=== PATIENT | male | born 1950 | race Caucasian/White ===

== ENCOUNTER 2019-01-09 18:40 | Inpatient (IN) | payer MEDICARE, OTHER ==
--- OUTSIDE RECORDS SUMMARY | 2019-01-09 19:00 | XMS REPORT | Continuity of Care Document ---
:1950 External Reference #:[id number] Author Name Edwin Voss M.D. Address [address] [facility] [address] [place] [address] Care Team Providers Name Role Phone HCP given Primary Care Physician Unavailable Payers Date Identification Numbers Payment Provider Subscriber Effective: Policy Number: [id number] [facility] Tomasz Emanuel 2016 Services PayID: [id number] [address] [place] [address] Effective: 2017 Policy Number: [id number] [facility] Tomasz Emanuel PayID: [id number] [address] [place] [address] Problems Active Problems Provider Date Benign essential hypertension Edwin Voss M.D. Onset: 03/13/2010 Hypothyroidism Edwin Voss M.D. Onset: 03/13/2010 Pure hypercholesterolemia Edwin Voss M.D. Onset: 03/13/2010 Impaired fasting glycaemia Edwin Voss M.D. Onset: 01/20/2011 Obstructive sleep apnea syndrome Edwin Voss M.D. Onset: 02/24/2011 Type 2 diabetes mellitus Edwin Voss M.D. Onset: 05/08/2014 Essential hypertension Edwin Voss M.D. 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 Tobacco Use Start: Unknown End: Former Cigarette Smoker quit 1992; prior to Unknown that smoked 1-2ppd Smoking Status Reviewed: 11/27/18 Former Cigarette Smoker quit 1992; prior to that smoked 1-2ppd Smokeless Tobacco Current Smokeless 1 can q2wks Tobacco User ETOH Use Rarely consumes alcohol Exercise Type/Frequency Exercises regularly walks, hikes Age 1st [place] 19 Years Old # [employer] [facility] [employer] 1-5 Lifetime Allergies, Adverse Reactions, Alerts Active Allergies Reaction Severity Comments Date Zocor muscle pain 09/09/2009 Medications Active Medications SIG Qnty Indications Ordering Date Provider Meclizine HCL take 1 tablet by 30tabs H81.10 Silcoff, 25mg Tablets mouth every 6 hours Akin Pineda 9 as needed for vertigo Hydrochlorothiazide take 1 tablet every 90tabs I10 Silcoff, 25mg morning for high Akin Pineda 8 Tablets blood pressure Azelastine HCL instill one drop 18ml H10.13 Silcoff, (Ophthalmic) into affected eye Akin Pineda 8 0.05% Solution two times a day as needed, space doses at least 6 hours apart Synthroid take 1 tablet every 100tabs E03.8 Silcoff, 200mcg Tablets morning at least 30 Akin Pineda 8 minutes before breakfast for thyroid (blood test due winter 2018-2020) Metformin HCL ER Take 3 Tablets 270tabs E11.9 Silcoff, 500mg Daily With Supper Akin Pineda 6 Tablets ER 24HR For Blood Sugar Control Cpap (Set To 10CM H2o) with heated G47.33 Silcoff, humidification Akin Pineda 5 Losartan Potassium Take 1 Tablet Daily 90tabs I10 Silcoff, 100mg For High Blood Akin Pineda 5 Tablets Pressure Fluticasone Propionate Use 2 Sprays In 48units J30.9 Silcoff, Each Nostril Once Akin Pineda 2 50mcg/Act Suspension Daily For Allergies Mask, Tubing And Filters G47.33 Silcoelayne, For Cpap Akin Pineda 1 Elastic Compression use as directed 454.9 Silco, Stockings; Above Knee; Akin Pineda 1 20-30MMHG Zyrtec Allergy 1 po qd 477.9 Unknown 10mg Tablets 0 Amlodipine Besylate Take 1 Tablet Daily 90tabs I10 Silcoff, 10mg For High Blood Akin Pineda 0 Tablets Pressure Atenolol Take 1 Tablet By 90tabs I10 Silkacy, 50mg Tablets Mouth Every Day For Akin Pineda 0 High Blood Pressure Ibuprofen Take 1 Tablet Three 270tabs M25.50 Silcoelayne, 800mg Tablets Times A Day as Akin Pineda 0 Needed For Arthritis M15.0 History Medications Amoxicillin/Clavulanate 1 by mouth twice a 20tabs J32.9 Sopaniya, 2018 - Potassium day Constantino Cardona 12/07/2018 875-125mg Tablets Oxybutynin Chloride ER take one tablet by 30tabs N32.81 Shanika, 2018 - 5mg Tablets mouth every Edwin, 08/27/2018 ER 24HR evening for M.D. overactive bladder Sulfamethoxazole/Trimethopr 1 by mouth twice a 14tabs N39.0 Silcoelayne, 03/07 - im DS day for 1 week for Edwin, 03/07/2018 800-160mg Tablets a UTI M.D. Shingrix administer 2 doses 2units Z23 Silcoff, 03/07/2018 - 50mcg Suspension Rec as directed, per Edwin, 09/03/2018 cdc guidelines MPam Synthroid 1 tab by mouth 90tabs E03.8 Silcoff, 03/15/2017 - 175mcg Tablets every morning (at Edwin, 09/26/2017 least 30 minutes M.D. before breakfast) for thyroid; blood test due late may 2018 Synthroid Take 1 Tablet 90tabs E03.8 Silcoff, 09/21/2016 - 112mcg Tablets Every Morning On [place], 03/15/2017 An Empty Stomach M.D. For Thyroid Tramadol HCL 1-2 by mouth every 60tabs M54.6 [facility], 08/09/2016 - 50mg Tablets 6 hours as needed Brendan D.OAntonio 09/08/2016 for pain Metformin HCL ER 2 by mouth every 180tabs E11.9 Silco, 09/26/2015 - 500mg Tablets ER evening; for blood [place], 12/26/2015 24HR sugar control M.D. Doxazosin Mesylate take 1/2 tablet by 90tabs I10 [facility]27[place]2015 - 2mg Tablets mouth at bedtime [place], 09/05/2015 for 1 week then M.D. increase to 1 tablet at bedtime if tolerating it well Synthroid Take 2 Tablets 180tabs E03.8 [facility] 06/[facility] - 125mcg Tablets Every Morning On [place], 09/21/2016 An Empty Stomach M.D. For Thyroid Crestor take 1 tablet 42samples 272.0 [facility] 07/08/2014 - 5mg Tablets daily for high [place], 09/19/2014 cholesterol M.D. Pravastatin Sodium take one tablet by 90tabs 272.0 [facility]/08[place]2014 - 40mg Tablets mouth every [place], 05/22/2014 evening for high M.D. cholesterol Losartan Potassium take 1 tablet 90tabs 401.1 Silco, 05/08/2014 - 50mg Tablets daily in the [place], 07/08/2014 morning for high M.D. blood pressure Crestor take one tablet by 90tabs 272.0 Silco, 01/30/2014 - 10mg Tablets mouth every day [place], 04/23/2014 for high M.D. cholesterol Augmentin 1 cap by mouth 20tabs 461.0 [facility], 08/30/2013 - 875-125mg Tablets twice a day Brendan, D.O. 01/29/2014 Bromelain 1200 Gdu 1 cap by mouth 90units 461.0 [facility], 08/30/2013 - 1200Gdu Powder three times a day Brendan, D.O. 01/29/2014 Pataday instill 1 drop 2.500ml H10.13 [facility] 08/[place]2013 - 0.2% Solution into affected eye Edwin, 10/09/2017 daily for allergic M.DAntonio conjunctivitis Clobetasol Propionate apply to the 2 30gm 709.9 Silkacy, 05/28/2013 - 0.05% affected on calf Edwin, 09/19/2014 Ointment 2x/day as needed Akin 782.1 696.1 Amoxicillin 2 by mouth three 60tabs 461.9 Silcoelayne, 05/14/2013 - 500mg times a day for 10 Akin Pineda 05/24/2013 Tablets days for sinusitis Hydrocortisone apply to affected 15gm 709.9 Silcoelayne, 04/04/2013 - Valerate area on back of R Akin Pineda 04/25/2013 0.2% Ointment leg (near ankle) 2-3x/day for 2-3 weeks Atorvastatin Calcium Take 1 Tablet By 90tabs 272.0 Silkacy, 03/14/2013 - Mouth Every Day To Akin Pineda 04/04/2013 10mg Tablets Reduce Cholesterol Synthroid 2 By Mouth Every 180tabs E03.8 Silcoff, 01/02/2013 - 112mcg Morning On An Akin Pineda 06/27/2015 Tablets Empty Stomach; overdue for bloodwork!! Tramadol HCL 1-2 by mouth every 60tabs 715.09 Silcoelayne, 01/02/2013 - 50mg night as needed Akin Pineda 01/29/2014 Tablets for joint pains 719.49 Amoxicillin/Clavulanate 1 by mouth 20tabs 461.0 Silcoelayne, 09/19/2012 - Potassium twice a day for Akin Pineda 09/29/2012 875-125mg Tablets sinus infection Azithromycin 2 by mouth on 6tabs 466.0 Silcoelayne, 08/14/2012 - 250mg Tablets day then 1 by Akin Pineda 08/19/2012 mouth daily for 4 more days Foradil Aerolizer inhale the 18samples 466.0 Silcoff, 08/14/2012 - 12mcg Capsules contents of 1 Akin Pineda 08/23/2012 capsule every 12hrs Synthroid take 1 tablet 120tabs 244.8 Silcoff, 07/07/2012 - 150mcg Tablets by mouth 5x/wk, Akin Pineda 01/02/2013 2 tabs 2x/wk; take in the morning on an empty stomach Amoxicillin/Clavulanate 1 tab po bid x 20tabs 461.2 Nhungcoelayne, 05/12/2012 - Potassium 10 Akin Pindea 06/21/2012 875-125mg Tablets Augmentin 1 tab po bid x 20tabs 461.2 Shanika, 05/15/2010 - 875-125mg Tablets 10 d Akin Pineda 05/25/2010 Lipitor Take 1 Tablet 90tabs 272.0 Nhungcoelayne, 03/13/2010 - 10mg Tablets By Mouth Every Akin Pineda 03/14/2013 Day To Reduce Cholesterol Synthroid Take 1 Tablet 104tabs 244.8 Nhungcoelayne, 09/22/2009 - 150mcg Tablets By Mouth Every Akin Pineda 07/07/2012 Day In The Morning On An Empty Stomach Tuesday Through Tuesday And 2 Tablets On Tuesday Synthroid 1 po qd 90tabs 244.8 [place]ne, 09/08/2009 - 150mcg Tablets Akin Pineda 09/22/2009 Flonase 2 sprays to 48gm 477.9 [place]el[place]ne, 09/08/2009 - 50mcg/Act Suspension both nostrils Akin Pineda 05/18/2012 once daily for allergies Clarinex 1 tablet po qd 90tabs 477.9 Shanika, 09/08/2009 - 5mg Tablets prn for Akin Pineda 09/11/2009 allergies Hydrochlorothiazide Take 1 Tablet 90tabs I10 Shanika, 09/08/2009 - 25mg Tablets Every Morning Akin Pineda 09/21/2017 For High Blood Pressure Medications Administered in Office Medication SIG Qnty Indications Ordering Provider Date H1N1 Swine Flu Vaccine Edwin Voss M.D. 09/09/2009 Injection Immunizations CPT Code Status Date Vaccine Lot # [id number] Given 09/04/2018 Pneumococcal Immunization [id number] 80027 Given 03/07/2018 Influenza Vaccine, Inactivated, Subunit, [id number] [place]ed[place] [facility] [address] Given 03/23/2017 Prevnar 13 [id number] 66775 Given 02/25/2017 Influenza Vaccine Split Virus Preservative Free Im [id number] Use 97232 Given 02/19/2016 Influenza Virus Vaccine, Quadrivalent, Split, [id number] Preservative Free 72753 Given 03/20/2015 Influenza Virus Vaccine, Quadrivalent, Split, [id number] Preservative Free 67451 Given 04/12/2014 Flu, Split Virus 3Yrs [id number] 03646 Given 04/04/2013 Flu, Split Virus 3Yrs [id number] 56698 Given 01/02/2013 Zostavax [id number] 58591 Given 02/22/2012 Flu, Split Virus 3Yrs [id number] 72335 Given 02/24/2011 Flu, Split Virus 3Yrs [id number] 85906 Given 09/21/2010 Pneumococcal Immunization [id number] 33695 Given 09/21/2010 Adacel or Boostrix, TDaP [id number] 20574 Given 04/08/2010 Flu, Split Virus 3Yrs [id number] Vital Signs Date Vital Result Comment 12/18/2018 11:27am BP Systolic 120 mmHg BP Diastolic 66 mmHg Weight 262.00 lb 11/27/2018 1:36pm BP Systolic 122 mmHg BP Diastolic 70 mmHg Height 71.5 inches 5'11.50" Weight 262.00 lb BMI (Body Mass Index) 36.0 kg/m2 09/29/2018 4:30pm BP Systolic 130 mmHg per pt at home BP Diastolic 75 mmHg per pt at home 09/04/2018 8:39am BP Systolic 122 mmHg BP Diastolic 78 mmHg Weight 269.00 lb w/shoes 03/07/2018 10:01am BP Systolic 128 mmHg BP Diastolic 76 mmHg Body Temperature 97.7 F Height 71.50 inches 5'11.50" Weight 266.00 lb BMI (Body Mass Index) 36.6 kg/m2 09/21/2017 1:52pm BP Systolic 138 mmHg BP Diastolic 74 mmHg BP Systolic Recheck 138 mmHg R arm sitting BP Diastolic Recheck 70 mmHg R arm sitting Weight 265.00 lb 06/04/2017 9:34am BP Systolic 128 mmHg BP Diastolic 84 mmHg Body Temperature 98.0 F Weight 267.00 lb 03/23/2017 2:51pm BP Systolic 118 mmHg BP Diastolic 64 mmHg BP Systolic Recheck 136 mmHg R arm sitting; recheck 132/74 BP Diastolic Recheck 68 mmHg R arm sitting; recheck 132/74 Weight 262.00 lb 09/21/2016 2:07pm BP Systolic 125 mmHg per nurse BP Diastolic 80 mmHg per nurse BP Systolic Recheck 132 mmHg R arm sitting BP Diastolic Recheck 74 mmHg R arm sitting Weight 257.00 lb with shoes 08/09/2016 1:02pm BP Systolic 130 mmHg standing BP Diastolic 78 mmHg standing Height 71.50 inches 5'11.50" with boots Weight 257.00 lb with boots BMI (Body Mass Index) 35.3 kg/m2 03/29/2016 1:20pm BP Systolic 124 mmHg BP Diastolic 80 mmHg BP Systolic Recheck 122 mmHg R arm sitting BP Diastolic Recheck 68 mmHg R arm sitting Weight 272.00 lb 12/26/2015 3:45pm BP Systolic 126 mmHg BP Diastolic 70 mmHg Height 71.50 inches 5'11.50" Weight 285.00 lb BMI (Body Mass Index) 39.2 kg/m2 09/26/2015 4:46pm BP Systolic 130 mmHg BP Diastolic 80 mmHg Weight 287.00 lb with shoes 06/27/2015 8:49am BP Systolic 142 mmHg BP Diastolic 72 mmHg BP Systolic Recheck 144 mmHg R arm sitting BP Diastolic Recheck 84 mmHg R arm sitting Height 71.50 inches 5'11.50" Weight 286.00 lb BMI (Body Mass Index) 39.3 kg/m2 12/20/2014 5:51pm BP Systolic 160 mmHg R arm w/ his cuff BP Diastolic 90 mmHg R arm w/ his cuff BP Systolic Recheck 155 mmHg R arm w/ our cuff BP Diastolic Recheck 74 mmHg R arm w/ our cuff 12/20/2014 4:25pm BP Systolic 158 mmHg 149/86 w/ Home BP cuff BP Diastolic 78 mmHg 149/86 w/ Home BP cuff Height 70.75 inches 5'10.75" Weight 283.00 lb BMI (Body Mass Index) 39.7 kg/m2 09/20/2014 4:39pm BP Systolic 150 mmHg BP Diastolic 80 mmHg BP Systolic Recheck 150 mmHg BP Diastolic Recheck 72 mmHg Weight 286.00 lb shoes on 07/08/2014 4:13pm BP Systolic 140 mmHg BP Diastolic 78 mmHg BP Systolic Recheck 146 mmHg R arm sitting BP Diastolic Recheck 82 mmHg R arm sitting Height 70.25 inches 5'10.25" Weight 280.00 lb BMI (Body Mass Index) 39.9 kg/m2 05/08/2014 3:07pm BP Systolic 128 mmHg BP Diastolic 80 mmHg BP Systolic Recheck 146 mmHg R arm sitting BP Diastolic Recheck 80 mmHg R arm sitting Weight 286.00 lb 01/30/2014 4:27pm BP Systolic 148 mmHg BP Diastolic 84 mmHg BP Systolic Recheck 144 mmHg R arm sitting BP Diastolic Recheck 86 mmHg R arm sitting Weight 293.00 lb shoes on 08/30/2013 4:52pm BP Systolic 152 mmHg BP Diastolic 76 mmHg Body Temperature 98.2 F Height 71.5 inches 5'11.50" shoes on Weight 292.00 lb shoes on BMI (Body Mass Index) 40.2 kg/m2 05/14/2013 2:05pm BP Systolic 136 mmHg BP Diastolic 80 mmHg Body Temperature 97.9 F Weight 287.00 lb 04/04/2013 3:00pm BP Systolic 140 mmHg BP Diastolic 84 mmHg BP Systolic Recheck 146 mmHg R arm sitting BP Diastolic Recheck 82 mmHg R arm sitting Height 70.75 inches 5'10.75" Weight 289.00 lb BMI (Body Mass Index) 40.6 kg/m2 01/02/2013 3:22pm BP Systolic 108 mmHg BP Diastolic 76 mmHg BP Systolic Recheck 128 mmHg R arm sitting BP Diastolic Recheck 76 mmHg R arm sitting Heart Rate 64 /min reg Weight 281.00 lb 09/19/2012 4:34pm BP Systolic 108 mmHg BP Diastolic 74 mmHg Body Temperature 98.4 F Weight 287.00 lb 08/14/2012 11:39am BP Systolic 128 mmHg BP Diastolic 86 mmHg Weight 283.00 lb 07/07/2012 9:10am BP Systolic 118 mmHg BP Diastolic 78 mmHg Height 71 inches 5'11" Weight 284.00 lb BMI (Body Mass Index) 39.6 kg/m2 Last Menstrual Period 0 05/12/2012 1:47pm BP Systolic 128 mmHg BP Diastolic 82 mmHg Body Temperature 98.4 F Weight 284.00 lb Last Menstrual Period 0 01/03/2012 9:31am BP Systolic 116 mmHg BP Diastolic 68 mmHg Height 71 inches 5'11" Weight 280.00 lb BMI (Body Mass Index) 39.0 kg/m2 Last Menstrual Period 0 07/05/2011 10:08am BP Systolic 110 mmHg BP Diastolic 70 mmHg Heart Rate 58 /min reg Respiratory Rate 12 /min not laboured Weight 273.00 lb 02/24/2011 11:33am BP Systolic 110 mmHg BP Diastolic 70 mmHg Weight 267.00 lb 01/20/2011 9:03am BP Systolic 114 mmHg BP Diastolic 80 mmHg Weight 263.00 lb 12/11/2010 4:25pm BP Systolic 124 mmHg BP Diastolic 68 mmHg Body Temperature 98.2 F Weight 258.00 lb 12/08/2010 12:06pm BP Systolic 106 mmHg BP Diastolic 72 mmHg Body Temperature 98.4 F Weight 261.00 lb BMI (Body Mass Index) 18.9 kg/m2 10/07/2010 3:12pm BP Systolic 118 mmHg BP Diastolic 80 mmHg Height 71 inches 5'11" Weight 264.00 lb BMI (Body Mass Index) 36.8 kg/m2 09/21/2010 9:25am BP Systolic 110 mmHg BP Diastolic 68 mmHg Weight 262.00 lb Last Menstrual Period 0 05/15/2010 3:13pm BP Systolic 135 mmHg BP Diastolic 75 mmHg Heart Rate 67 /min Body Temperature 97.9 F Weight 263.00 lb Last Menstrual Period 0 03/13/2010 2:38pm BP Systolic 130 mmHg BP Diastolic 80 mmHg Height 70.5 inches 5'10.50" Weight 258.00 lb BMI (Body Mass Index) 36.5 kg/m2 09/09/2009 1:48pm BP Systolic 118 mmHg BP Diastolic 78 mmHg Height 71 inches 5'11" Weight 267.00 lb BMI (Body Mass Index) 37.2 kg/m2 Results Test Date Facility Test Result H/L Range Note Laboratory test 09/04/2018 In House Hemoglobin A1c 6.4 finding Laboratory test 09/04/2018 [facility] TSH (Thyroid 3.21 N 0.34-5.60 finding [phone] Stim Horm) mcIU/mL Basic Metabolic 09/04/2018 [facility] Sodium 139 mmol/L N 135-145 Panel [phone] Potassium 4.5 mmol/L N 3.5-5.0 Chloride 102 mmol/L N 101-111 Co2 Carbon Dioxide 30 mmol/L N 22-32 Anion Gap 7 mmol/L N 2-11 Glucose 129 mg/dL High 70-100 Blood Urea Nitrogen 17 mg/dL N 6-24 Creatinine 0.93 mg/dL N 0.67-1.17 BUN/Creatinine Ratio 18.3 N 8-20 Calcium 10.1 mg/dL N 8.6-10.3 Egfr Non- 81.3 >60 Egfr 98.4 >60 1 Urine Microalbumin 09/04/2018 [facility] Ur Microalbumin < 15.0 mg/L Random [phone] (mg/L) Urine Creatinine 42.31 mg/dL Urine Microalbumin/Creatinine TNP <31 2 Urine Micro Inhouse 03/21/2018 In House Ua WBC 0-2 3 Ua RBC - Ua Casts - Ua Epi 0-3 Ua Other - Ua Glucose - Ua Bilirubin - Ua Ketones - Ua Specific [place] 1.005 Ua Blood - Ua PH 6.5 Ua Protein - Ua Urobilinogen - Ua Nitrite - Ua Leukocytes tr Laboratory test finding 03/07/2018 In House Hemoglobin A1c 6.2 Urine Micro Inhouse 03/07/2018 In House Ua WBC 10-20 Ua RBC 3-6 Ua Casts - Ua Epi - Ua Other few bacteria Ua Glucose - Ua Bilirubin - Ua Ketones - Ua Specific [place] 1.005 Ua Blood 2+ Ua PH 6.0 Ua Protein - Ua Urobilinogen - Ua Nitrite - Ua Leukocytes 3+ Culture Urine 03/07/2018 In House Colonies confluent Inhouse growth Laboratory test 12/26/2017 [facility] TSH (Thyroid Stim 3.29 mcIU/mL N 0.34- finding [phone] Horm) 5.60 Laboratory test 09/21/2017 In House Hemoglobin A1c 6.0 finding Laboratory test 09/21/2017 [facility] TSH (Thyroid Stim 11.00 mcIU/mL High 0.34- finding [phone] Horm) 5.60 Urine Microalbumin 09/21/2017 [facility] Ur Microalbumin < 15.0 mg/L Random [phone] (mg/L) Urine Creatinine 55.09 mg/dL Urine Microalbumin/Creatinine TNP ug/mg <31 4 Basic Metabolic Panel 09/21/2017 [facility] Sodium 139 mmol/L N 139- 145 [phone] Potassium 4.7 mmol/L N 3.5-5.0 Chloride 101 mmol/L N 101-111 Co2 Carbon Dioxide 31 mmol/L N 22-32 Anion Gap 7 mmol/L N 2-11 Glucose 96 mg/dL N 70-100 Blood Urea Nitrogen 18 mg/dL N 6-24 Creatinine 0.93 mg/dL N 0.67-1.17 BUN/Creatinine Ratio 19.4 N 8-20 Calcium 10.1 mg/dL N 8.6-10.3 Egfr Non- 81.5 >60 Egfr 104.9 >60 5 Urine Micro Inhouse 09/21/2017 In House Ua WBC - Ua RBC - Ua Casts - Ua Epi - Ua Other - Ua Glucose - Ua Bilirubin - Ua Ketones - Ua Specific [place] 1.015 Ua Blood - Ua PH 6.0 Ua Protein - Ua Urobilinogen - Ua Nitrite - Ua Leukocytes - Laboratory test 09/14/2017 [facility] Surgical SEE RESULT 6, 7 finding [phone] Pathology BELOW Urine Micro Inhouse 06/04/2017 In House Ua WBC - 8 Ua RBC - Ua Casts - Ua Epi - Ua Other - Ua Glucose - Ua Bilirubin - Ua Ketones - Ua Specific [place] 1.010 Ua Blood - Ua PH 6.5 Ua Protein - Ua Urobilinogen - Ua Nitrite - Ua Leukocytes - Laboratory test 05/30/2017 [facility] TSH (Thyroid 5.43 mcIU/mL N 0.34-5.60 finding [phone] Stim Horm) Laboratory test 03/23/2017 In House Hemoglobin A1c 5.9 finding Laboratory test 03/14/2017 [facility] TSH (Thyroid 32.11 High 0.34- 5.60 finding [phone] Stim Horm) mcIU/mL Urine Micro 09/21/2016 In House Ua WBC - 9 Inhouse Ua RBC - Ua Casts - Ua Epi - Ua Other - Ua Glucose - Ua Bilirubin - Ua Ketones - Ua Specific [place] 1.015 Ua Blood - Ua PH 5.0 Ua Protein - Ua Urobilinogen - Ua Nitrite - Ua Leukocytes - Laboratory test 09/21/2016 In House Hemoglobin A1c 5.6 finding Laboratory test 09/13/2016 [facility] TSH (Thyroid Stim 0.05 Low 0.34 -5. finding [phone] Horm) mcIU/mL 60 Basic Metabolic 09/13/2016 [facility] Sodium 139 mmol/L N 133-145 Panel [phone] Potassium 4.4 mmol/L N 3.5-5.0 Chloride 103 mmol/L N 101-111 Co2 Carbon Dioxide 29 mmol/L N 22-32 Anion Gap 7 mmol/L N 2-11 Glucose 118 mg/dL High 70-100 Blood Urea Nitrogen 24 mg/dL N 6-24 Creatinine 0.85 mg/dL N 0.67-1.17 BUN/Creatinine Ratio 28.2 High 8-20 Calcium 9.7 mg/dL N 8.6-10.3 Egfr Non- 90.7 N >60 Egfr 116.7 N >60 10 Urine Microalbumin 09/13/2016 [facility] Urine Creatinine 93.34 mg/dL N Random [phone] Ur Microalbumin (mg/L) 21.2 mg/L N Urine Microalbumin/Creatinine 22.7 ug/mg N <31 Xray 08/09/2016 [facility] Medicine X-Ray, Ribs, rib 10 and 9 11 Unilateral - 2 fract Views, RT W/ CXR Laboratory test 03/29/2016 In House Hemoglobin A1c 6.2 finding Laboratory test 12/26/2015 In House Hemoglobin A1c 7.1 finding Urine Micro Inhouse 09/26/2015 In House Ua WBC - 12 Ua RBC - Ua Casts - Ua Epi - Ua Other - Ua Glucose - Ua Bilirubin - Ua Ketones - Ua Specific [place] 1.010 Ua Blood - Ua PH 5.0 Ua Protein - Ua Urobilinogen - Ua Nitrite - Ua Leukocytes - Laboratory test 09/26/2015 In House Hemoglobin A1c 7.6 finding Laboratory test 09/15/2015 [facility] TSH (Thyroid Stim 0.83 ?IU/mL N 0.34-5 finding [phone] Horm) .60 Laboratory test 08/20/2015 [facility] Surgical Pathology SEE RESULT 13 finding [phone] BELOW Laboratory test 06/27/2015 In House Hemoglobin A1c 7.2 finding Urine Microalbumin 06/17/2015 [facility] Ur Microalbumin 52.0 mg/L N Random [phone] (mg/L) Urine Creatinine 250.06 mg/dL N Urine Microalbumin/Creatinine 20.7 ug/mg N <31 Laboratory test 06/17/2015 [facility] TSH (Thyroid 4.25 ?IU/mL N 0.34 -5.60 finding [phone] Stim Horm) Basic Metabolic 06/17/2015 [facility] Sodium 137 mmol/L N 133-145 Panel [phone] Potassium 4.2 mmol/L N 3.5-5.0 Chloride 101 mmol/L N 101-111 Co2 Carbon Dioxide 29 mmol/L N 22-32 Anion Gap 7 mmol/L N 2-11 Glucose 160 mg/dL High 70-100 Blood Urea Nitrogen 23 mg/dL N 6-24 Creatinine 1.08 mg/dL N 0.67-1.17 BUN/Creatinine Ratio 21.3 High 8-20 Calcium 9.8 mg/dL N 8.6-10.3 Egfr Non- 69.1 N >60 Egfr 88.8 N >60 14 Laboratory test 12/20/2014 In House Hemoglobin A1c 7.0 finding Laboratory test 09/20/2014 In House Hemoglobin A1c 7.0 finding Basic Metabolic Panel 09/16/2014 [facility] Sodium 137 mmol/L N 133- 145 [phone] Potassium 4.4 mmol/L N 3.5-5.0 Chloride 103 mmol/L N 101-111 Co2 Carbon Dioxide 28 mmol/L N 22-32 Anion Gap 6 mmol/L N 2-11 Glucose 163 mg/dL High 70-100 Blood Urea Nitrogen 21 mg/dL N 6-24 Creatinine 0.95 mg/dL N 0.67-1.17 BUN/Creatinine Ratio 22.1 High 8-20 Calcium 9.7 mg/dL N 8.6-10.3 Egfr Non- 80.3 N >60 Egfr 103.3 N >60 15 Urine Microalbumin 07/08/2014 [facility] Ur Microalbumin (mg/L) 8.0 mg/ L N Random [phone] Urine Creatinine 15.85 mg/dL N Urine Microalbumin/Creatinine 50.4 High Less Than 31 Laboratory test 05/08/2014 In House Hemoglobin A1c 6.8 finding Basic Metabolic 05/06/2014 [facility] Sodium 137 mmol/L N 133-145 16 Panel [phone] Potassium 4.6 mmol/L N 3.5-5.0 17 Chloride 103 mmol/L N 101-111 Co2 Carbon Dioxide 28 mmol/L N 22-32 Anion Gap 6 mmol/L N 2-11 Glucose 146 mg/dL High 70-100 Blood Urea Nitrogen 19 mg/dL N 6-24 Creatinine 1.10 mg/dL N 0.67-1.17 BUN/Creatinine Ratio 17.3 N 8-20 Calcium 9.6 mg/dL N 8.6-10.3 Egfr Non- 67.8 N >60 Egfr 87.2 N >60 18 Laboratory test 05/06/2014 [facility] TSH (Thyroid 4.04 IU/mL N 0.34- 5.60 19 finding [phone] Stimulating Horm) Alt 41 U/L N 7-52 20 Lipid Profile 05/06/2014 [facility] Triglycerides 215 mg/dL N 21 (Trig/Chol/HDL) [phone] Cholesterol 241 mg/dL N 22 HDL Cholesterol 40.0 mg/dL N 23 LDL Cholesterol 158 mg/dL N 24 Laboratory test finding 01/30/2014 In House Hemoglobin A1c 6.9 Urine Micro Inhouse 01/30/2014 In House Ua WBC - Ua RBC - Ua Casts - Ua Epi - Ua Other - Ua Glucose - Ua Bilirubin - Ua Ketones - Ua Specific [place] 1.010 Ua Blood - Ua PH 6.0 Ua Protein - Ua Urobilinogen - Ua Nitrite - Ua Leukocytes - Laboratory test 05/22/2013 [facility] [facility] Surgical Pathology RUN DATE: 25 finding [phone] 05/25/ <SEE NOTE> Laboratory test 03/26/2013 [facility] TSH (Thyroid 1.41 miu/mL 0.34- 5 finding [phone] Stimulating Horm) .60 Hepatitis C Antibody Nonreactive Nonreactive Laboratory test 01/02/2013 In House Hemoglobin A1c 6.2 finding Laboratory test 12/27/2012 [facility] TSH (Thyroid 12.28 High 0.34- 5. finding [phone] Stimulating Horm) miu/mL 60 Urine Micro 07/07/2012 In House Ua WBC - Inhouse Ua RBC - Ua Casts - Ua Epi - Ua Other - Ua Glucose - Ua Bilirubin - Ua Ketones - Ua Specific [place] 1.010 Ua Blood - Ua PH 5.0 Ua Protein - Ua Urobilinogen - Ua Nitrite - Ua Leukocytes - Laboratory test 06/29/2012 [facility] TSH (Thyroid 9.65 miu/mL High 0.34-5.60 finding [phone] Stimulating Horm) Basic Metabolic 06/29/2012 [facility] Sodium 139 mmol/L 133-145 Panel [phone] Potassium 4.4 mmol/L 3.5-5.0 Chloride 104 mmol/L 101-111 Co2 Carbon Dioxide 28.0 mmol/L 22-32 Anion Gap 7.0 mmol/L 2-11 Glucose 130 mg/dL High 70-100 Blood Urea Nitrogen 15 mg/dL 6-24 Creatinine 1.20 mg/dL 0.50-1.40 BUN/Creatinine Ratio 12.5 8-20 Calcium 9.5 mg/dL 8.1-9.9 Egfr Non- 61.8 >60 Egfr 79.4 >60 26 Laboratory test finding 06/29/2012 [facility] Alt 41 U/L 14-54 [phone] Lipid Profile 06/29/2012 [facility] Triglycerides 146 mg/dL 40-200 (Trig/Chol/HDL) [phone] Cholesterol 176 mg/dL Less than 200 HDL Cholesterol 42 mg/dL 40-60 27 Cholesterol/HDL Ratio 4.2 Average 1-4.44 LDL Cholesterol 104.8 mg/dL High Less Than 100 28 Laboratory test finding 01/03/2012 In House Hemoglobin A1c 6.1 Laboratory test finding 07/05/2011 In House Glucose Quantitative 128 Hemoglobin A1c 6.2 Basic Metabolic Panel 06/28/2011 [facility] Sodium 137 mmol/L 135- 145 [phone] Potassium 4.2 mmol/L 3.5-5.0 Chloride 101 mmol/L 101-111 Co2 (Carbon Dioxide) 29.0 mmol/L 22-32 Anion Gap 7.0 mmol/L 2-11 29 Glucose 128 mg/dL High 70-100 BUN 21 mg/dL 6-24 Creatinine 1.1 mg/dL 0.50-1.40 One Over Creatinine 0.90 BUN/Creatinine Ratio 19.1 8-20 Calcium 9.4 mg/dL 8.1-9.9 eGFR Non- 68.5 > 60 eGFR 88.1 > 60 30 Laboratory test finding 06/28/2011 [facility] TSH 2.89 MIU/ML 0.34- 5.60 [phone] Alt (SGPT) 30 U/L 17-63 Lipid Profile 06/28/2011 [facility] Triglyceride 174 mg/dL 40-200 (Trig/Chol/HDL) [phone] Cholesterol 204 mg/dL High Less Than 200 31 High Density Lipoprotein 45 mg/dL 40-60 32 Cholesterol/HDL Ratio 4.53 AVERAGE 1-4.97 Low Density Lipoprotein 124 mg/dL High Less Than 100 33 Laboratory test 01/20/2011 In House Hemoglobin A1c 6.0 finding Culture And 12/08/2010 [facility] Gram Stain Smear MANY SMALL 34, 35 Sensitivity [phone] GRAM <SEE NOTE> Culture 12/08/2010 [facility] Culture NCF 36 Sensitivity [phone] Sensitivity Comp Metabolic 12/08/2010 [facility] Sodium 136 mmol/L 135-14 Panel [phone] Potassium 3.8 mmol/L 3.5-5.0 Chloride 103 mmol/L 101-111 Co2 (Carbon Dioxide) 27.0 mmol/L 22-32 Anion Gap 6.0 mmol/L 2-11 37 Glucose 93 mg/dL 70-100 BUN 20 mg/dL 6-24 Creatinine 1.00 mg/dL 0.50-1.40 One Over Creatinine 1.00 BUN/Creatinine Ratio 20.0 8-20 Calcium 9.6 mg/dL 8.1-9.9 Total Protein 6.5 GM/DL 6.2-8.1 Albumin 4.2 GM/DL 3.6-5.4 Globulin 2.3 GM/DL 2-4 Albumin/Globulin Ratio 1.8 1-3 Bilirubin Total 1.1 mg/dL 0.4-1.5 38 Alkaline Phosphatase 50 U/L 39-117 Alt (SGPT) 18 U/L 17-63 Ast (Sgot) 19 U/L 12-42 eGFR Non- 76.5 > 60 eGFR 98.4 > 60 39 Laboratory test finding 07/30/2010 [facility] Alt (SGPT) 25 U/L 17- 63 [phone] CPK (Creatine Kinase) 167 U/L 0-200 Lipid Profile 07/30/2010 [facility] Triglyceride 146 mg/dL 40-200 (Trig/Chol/HDL) [phone] Cholesterol 166 mg/dL Less Than 200 40 High Density Lipoprotein 42 mg/dL 40-60 41 Cholesterol/HDL Ratio 3.95 AVERAGE 1-4.97 Low Density Lipoprotein 95 mg/dL Less Than 100 42 Laboratory test 07/30/2010 [facility] Hemoglobin A1c 6.7 % High Less Than 43 finding [phone] 6.0 TSH 0.56 MIU/ML 0.34-5.60 Basic Metabolic Panel 07/30/2010 [facility] Sodium 138 mmol/L 135- 145 [phone] Potassium 4.9 mmol/L 3.5-5.0 Chloride 103 mmol/L 101-111 Co2 (Carbon Dioxide) 29.0 mmol/L 22-32 Anion Gap 6.0 mmol/L 2-11 44 Glucose 124 mg/dL High 70-100 BUN 19 mg/dL 6-24 Creatinine 1.00 mg/dL 0.50-1.40 One Over Creatinine 1.00 BUN/Creatinine Ratio 19.0 8-20 Calcium 9.5 mg/dL 8.1-9.9 eGFR Non- 76.7 > 60 eGFR 98.7 > 60 45 Basic Metabolic Panel 02/26/2010 [facility] Sodium 140 mmol/L 135- 145 [phone] Potassium 4.3 mmol/L 3.5-5.0 Chloride 102 mmol/L 101-111 Co2 (Carbon Dioxide) 29.0 mmol/L 22-32 Anion Gap 9.0 mmol/L 2-11 46 Glucose 123 mg/dL High 70-100 47 BUN 21 mg/dL 6-24 Creatinine 1.10 mg/dL 0.50-1.40 One Over Creatinine 0.90 BUN/Creatinine Ratio 19.1 8-20 Calcium 9.7 mg/dL 8.1-9.9 eGFR Non- 73.1 > 60 eGFR 88.4 > 60 48 CBC With Electronic 02/26/2010 [facility] White Blood 6.3 CUMM 4.8- 10.8 Diff [phone] Count Red Cell Count 4.98 CUMM 4.6-6.2 Hemoglobin 15.5 g/dL 14.0-18.0 Hematocrit 46 % 42-52 Mean Corpuscular Volume 92 um3 80-94 Mean Corpuscular Hemoglob 31 pg 27-31 Mean Corpuscular HGB Cone 34 g/dL 32-36 Redcell Distribution WDTH 14 % 10.5-15 Platelet Count 244 CUMM 150-450 Mean Platelet Volume 8.1 um3 7.4-10.4 Gran % 55.7 % 38-83 Lymph % 28.5 % 25-47 Mononuclear % 9.3 % High 1-9 Eosinophil % 5.6 % 0-6 Basophil % 0.9 % 0-2 Abs Lymphs 1.8 1.0-4.8 Abs Mononuclear 0.6 0-0.8 Absolute Neutrophil Count 3.4 1.5-7.7 Abs Eosinophils 0.4 0-0.6 Abs Basophils 0.1 0-0.2 Laboratory test finding 02/26/2010 [facility] TSH 2.94 MIU/ML 0.34- 5.60 [phone] Alt (SGPT) 29 U/L 17-63 Lipid Profile 02/26/2010 [facility] Triglyceride 131 mg/dL 40-200 (Trig/Chol/HDL) [phone] Cholesterol 272 mg/dL High Less Than 200 49 High Density Lipoprotein 49 mg/dL 40-60 50 Cholesterol/HDL Ratio 5.55 AVERAGE High 1-4.97 Low Density Lipoprotein 197 mg/dL High Less Than 100 51 Laboratory test 02/26/2010 [facility] CPK (Creatine 163 U/L 0-200 finding [phone] Kinase) 1 Because ethnic data is not always readily available, this report includes an eGFR for both -Americans and non- Americans. The National Kidney Disease Education Program (NKDEP) does not endorse the use of the MDRD equation for patients that are not between the ages of 18 and 70, are , have extremes of body size, muscle mass, or nutritional status, or are non- or non-. According to the National Kidney Foundation, irrespective of diagnosis, the stage of the disease is based on the level of kidney function: Stage Description GFR(mL/min/1.73 m(2)) 1 Kidney damage with normal or decreased GFR 90 2 Kidney damage with mild decrease in GFR 60-89 3 Moderate decrease in GFR 30-59 4 Severe decrease in GFR 15-29 5 Kidney failure <15 (or dialysis) 2 Unable to calculate due to low microalbumin 3 void, clear, yellow 4 Unable to calculate due to low microalbumin 5 Because ethnic data is not always readily available, this report includes an eGFR for both -Americans and non- Americans. The National Kidney Disease Education Program (NKDEP) does not endorse the use of the MDRD equation for patients that are not between the ages of 18 and 70, are , have extremes of body size, muscle mass, or nutritional status, or are non- or non-. According to the National Kidney Foundation, irrespective of diagnosis, the stage of the disease is based on the level of kidney function: Stage Description GFR(mL/min/1.73 m(2)) 1 Kidney damage with normal or decreased GFR 90 2 Kidney damage with mild decrease in GFR 60-89 3 Moderate decrease in GFR 30-59 4 Severe decrease in GFR 15-29 5 Kidney failure <15 (or dialysis) 6 [id number] SEE RESULT BELOW Name: SARITOMASZ : [address]: Jefferson Thompson MD Acct: [id number] Unit: [id number] AGE: 66 Location: [facility] Re09/14/17 SEX: M Status: DEP REF SPEC: [id number] EILEEN: 09/14/17-[address] [facility] [address]: Jefferson Thompson MD REQ: [id number] RECD: 09/14/179912 STATUS: GAYLE ENCARNACION DR: Edwin Voss MD _ ORDERED: LEVEL 4/2 COMMENTS: [id number] FINAL DIAGNOSIS 1. Colon, distal sigmoid at 24 cm, biopsy: -- Hyperplastic polyp. 2. Colon, rectum at 6 cm, biopsy: -- Hyperplastic polyp. POST-OPERATIVE DIAGNOSIS To cecum with ease ? good prep; conclusion/plan: minimal diverticulosis; 2 polyps GROSS DESCRIPTION 1. The specimen is received in formalin labeled, Distal Sigmoid at 24 cm, and consists of a 0.8 x 0.3 x 0.1 cm willson-pink irregular soft tissue fragment which is submitted entirely in one cassette. 2. The specimen is received in formalin labeled, Rectum at 6 cm Polyp, and consists of a 0.3 x 0.2 x 0.2 cm willson-pink polypoid soft tissue fragment which is submitted entirely in one cassette. Signed (signature on file) Stefanie Lema MD 10/28 1007 END OF REPORT DEPARTMENT OF PATHOLOGY, [address] [place] [address] Alex Stephens M.D. Director [facility] # [id number] 8 void, clear, yellow 9 void, clear, gold 10 Because ethnic data is not always readily available, this report includes an eGFR for both -Americans and non- Americans. The National Kidney Disease Education Program (NKDEP) does not endorse the use of the MDRD equation for patients that are not between the ages of 18 and 70, are , have extremes of body size, muscle mass, or nutritional status, or are non- or non-. According to the National Kidney Foundation, irrespective of diagnosis, the stage of the disease is based on the level of kidney function: Stage Description GFR(mL/min/1.73 m(2)) 1 Kidney damage with normal or decreased GFR 90 2 Kidney damage with mild decrease in GFR 60-89 3 Moderate decrease in GFR 30-59 4 Severe decrease in GFR 15-29 5 Kidney failure <15 (or dialysis) 11 no evidence of pneumothorax or lung injury from fractures. 12 void, clear, yellow 13 SEE RESULT BELOW Name: SARITOMASZ : [address]: Jefferson Thompson MD Acct: [id number] Unit: [id number] AGE: 64 Location: [facility] Re08/20/15 SEX: M Status: REG REF SPEC: [id number] EILEEN: 08/20/15-[address]: Jefferson Thompson MD REQ: [id number] RECD: 08/20/15-4002 STATUS: GAYLE ENCARNACION DR: Edwin Voss MD _ ORDERED: LEVEL IV/10 FINAL DIAGNOSIS 1. Colon, ileocecal valve, polyp #1, biopsy: -- Tubular adenoma. -- No high grade dysplasia or malignancy. 2. Colon, ileocecal valve, polyp #2, biopsy: -- Tubular adenoma. -- No high grade dysplasia or malignancy. 3. Colon, proximal right, biopsy: -- Tubular adenoma. -- No high grade dysplasia or malignancy. 4. Colon, mid right, biopsy: -- Tubular adenoma. -- No high grade dysplasia or malignancy. 5. Colon, distal right, biopsy: -- Tubular adenoma. -- No high grade dysplasia or malignancy. 6. Colon, mid transverse, biopsy: -- Tubular adenoma. -- No high grade dysplasia or malignancy. 7. Colon, distal transverse, biopsy: -- Tubular adenoma. -- No high grade dysplasia or malignancy. 8. Colon, sigmoid at 20 cm, biopsy: -- Hyperplastic polyp. 9. Colon, descending at 35 cm, biopsy: -- Hyperplastic polyp. CONTINUED ON NEXT PAGE * ML=Testing performed at Main Lab DEPARTMENT OF PATHOLOGY, [address] [place] [address] Alex Stephens M.D. Director [facility] # [id number] RUN DATE: 08/22/15 [facility] LAB LIVE PAGE 2 Patient: TOMASZ EMANUEL [id number] (Continued) FINAL DIAGNOSIS (Continued) 10. Colon, rectosigmoid at 16 cm, biopsy: -- Hyperplastic polyp. CLINICAL HISTORY Family history - father - breast cancer age 90; mother - cervical and lung cancer POST-OPERATIVE DIAGNOSIS Colonoscopy to cecum with ease. Conclusions/plan: Diverticulosis, polyps - 10 all area GROSS DESCRIPTION 1. The specimen is received in formalin labeled, Biopsy Ileocecal Polyp #1 , and consists of a 0.9 x 0.2 x 0.1 cm willson irregular soft tissue fragment, which is submitted entirely in one cassette. 2. The specimen is received in formalin labeled, Biopsy Ileocecal Polyp #2 , and consists of a 0.7 x 0.4 x 0.2 cm aggregate of willson irregular to polypoid soft tissue fragments, which is submitted entirely in one cassette. 3. The specimen is received in formalin labeled, Proximal Right Colon, and consists of a 0.6 x 0.5 x 0.3 cm willson polypoid soft tissue fragment, which is inked, bisected and submitted entirely in one cassette. 4. The specimen is received in formalin labeled, Mid Right Colon, and consists of a 0.6 x 0.4 x 0.3 cm aggregate of willson irregular to polypoid soft tissue fragments, which is submitted entirely in one cassette. 5. The specimen is received in formalin labeled, Distal Right Colon Polyp, and consists of a 0.5 x 0.2 x 0.2 cm willson polypoid soft tissue fragment, which is inked, bisected and submitted entirely in one cassette. 6. The specimen is received in formalin labeled, Mid Transverse Colon Polyp , and consists of a 0.4 x 0.4 x 0.3 cm willson polypoid soft tissue fragment, which is inked, bisected and submitted entirely in one cassette. 7. The specimen is received in formalin labeled, Distal Transverse Colon Polyp, and consists of a 0.8 x 0.5 x 0.4 cm willson polypoid soft tissue fragment, which is inked, bisected and submitted entirely in one cassette. CONTINUED ON NEXT PAGE * ML=Testing performed at Main Lab DEPARTMENT OF PATHOLOGY, [address] [place] [address] Alex Stephens M.D. Director [facility] # [id number] RUN DATE: 08/22/15 [facility] LAB LIVE PAGE 3 Patient: SARITOMASZ [id number] (Continued) GROSS DESCRIPTION (Continued) GROSS DESCRIPTION (Continued) 8. The specimen is received in formalin labeled, Biopsy Sigmoid Polyp at 20 cm, and consists of a 0.7 x 0.5 x 0.3 cm aggregate of willson irregular to polypoid soft tissue fragments, which is submitted entirely in one cassette. 9. The specimen is received in formalin labeled, Biopsy Descending Polyp at 35 cm, and consists of a 0.4 x 0.4 x 0.2 cm willson irregular soft tissue fragment, which is submitted entirely in one cassette. 10. The specimen is received in formalin labeled, Rectosigmoid Polyp at 16 cm, and consists of a 0.4 x 0.4 x 0.3 cm willson polypoid soft tissue fragment, which is inked, bisected and submitted entirely in one cassette. Signed (signature on file) Stefanie Lema MD 04/28 1046 END OF REPORT * ML=Testing performed at Main Lab DEPARTMENT OF PATHOLOGY, [address] [place] [address] Alex Stephens M.D. Director [facility] # [id number] 14 Because ethnic data is not always readily available, this report includes an eGFR for both -Americans and non- Americans. The National Kidney Disease Education Program (NKDEP) does not endorse the use of the MDRD equation for patients that are not between the ages of 18 and 70, are , have extremes of body size, muscle mass, or nutritional status, or are non- or non-. According to the National Kidney Foundation, irrespective of diagnosis, the stage of the disease is based on the level of kidney function: Stage Description GFR(mL/min/1.73 m(2)) 1 Kidney damage with normal or decreased GFR 90 2 Kidney damage with mild decrease in GFR 60-89 3 Moderate decrease in GFR 30-59 4 Severe decrease in GFR 15-29 5 Kidney failure <15 (or dialysis) 15 Because ethnic data is not always readily available, this report includes an eGFR for both -Americans and non- Americans. The National Kidney Disease Education Program (NKDEP) does not endorse the use of the MDRD equation for patients that are not between the ages of 18 and 70, are , have extremes of body size, muscle mass, or nutritional status, or are non- or non-. According to the National Kidney Foundation, irrespective of diagnosis, the stage of the disease is based on the level of kidney function: Stage Description GFR(mL/min/1.73 m(2)) 1 Kidney damage with normal or decreased GFR 90 2 Kidney damage with mild decrease in GFR 60-89 3 Moderate decrease in GFR 30-59 4 Severe decrease in GFR 15-29 5 Kidney failure <15 (or dialysis) 16 FASTING 12 HOUR 17 Potassium reference range changed effective 04/14/14 18 Because ethnic data is not always readily available, this report includes an eGFR for both -Americans and non- Americans. The National Kidney Disease Education Program (NKDEP) does not endorse the use of the MDRD equation for patients that are not between the ages of 18 and 70, are , have extremes of body size, muscle mass, or nutritional status, or are non- or non-. According to the National Kidney Foundation, irrespective of diagnosis, the stage of the disease is based on the level of kidney function: Stage Description GFR(mL/min/1.73 m(2)) 1 Kidney damage with normal or decreased GFR 90 2 Kidney damage with mild decrease in GFR 60-89 3 Moderate decrease in GFR 30-59 4 Severe decrease in GFR 15-29 5 Kidney failure <15 (or dialysis) 19 FASTING 12 HOUR 20 FASTING 12 HOUR 21 Desirable <150 Borderline high 150-199 High 200-499 Very High >500 22 Desirable <200 Borderline high 200-239 High >239 23 Low <40 Desirable: 40-60 High: >60 24 Desirable <100 Near Optimal 100-129 Borderline high 130-159 High 160-189 Very High >189 25 RUN DATE: 05/25/13 [facility] LAB LIVE PAGE 1 RUN TIME: [address] [place] [id number] Specimen Inquiry Name: TOMASZ EMANUEL : [address]: Edwin Voss MD Acct: [id number] Unit: [id number] AGE: 62 Location: [facility] Re05/22/13 SEX: M Status: REG REF SPEC: [id number] EILEEN: 05/22/13- SUBM DR: Edwin Voss MD REQ: [id number] RECD: 05/22/13 STATUS: SOUT _ ORDERED: [facility], LEVEL IV FINAL DIAGNOSIS Skin, right posterior lower leg, punch biopsy: 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 COMMENT: Sections show a punch biopsy of skin with features suggestive of a patch of psoriasis. There is an inflammatory infiltrate associated with this process. A fungal stain is negative. Also seen is a cluster of Langerhans cells in the overlying epidermis, a characteristic feature of contact dermatitis. The overall clinical impression of this area is a psoriasiform dermatitis, which could be a lesion of psoriasis. Additionally, there are superimposed changes of contact dermatitis, possibly from a topical medication. There is no evidence of malignancy in the sampled tissue. If this is an isolated patch, treatment recommendations would include a topical steroid such as triamcinolone. CLINICAL HISTORY Area has thick overlying scale, feels slightly thickened xerotic CONTINUED ON NEXT PAGE * ML=Testing performed at Main Lab DEPARTMENT OF PATHOLOGY, [facility] [place] [facility] [place] [email or web address] [place], [place] [address] Alex Stephens M.D. Director [facility] Permit #[id number] RUN DATE: 05/25/13 [facility] LAB LIVE PAGE 2 RUN TIME: 630 [facility] [place] [facility] [place] [employer] [place], [place] [address] Specimen Inquiry Patient: TOMASZ EMANUEL [id number] (Continued) PRE-OPERATIVE DIAGNOSIS (Continued) PRE-OPERATIVE DIAGNOSIS Skin subcutaneous tissue disorders. Area is 1-1.5 cm erythematous macule GROSS DESCRIPTION The specimen is received in formalin labeled Tomasz Emanuel, Right posterior Lower Leg and consists of a punch biopsy specimen measuring 0.3 x 0.3 x 0.3 cm. The specimen is inked, bisected, and submitted entirely in one cassette. MICROSCOPIC DESCRIPTION Sections show a punch biopsy of skin excised to include deep reticular dermis. The epidermis shows regular acanthosis with suprapapillary plate thinning. The overlying stratum corneum shows patchy parakeratosis with clusters of neutrophils in the stratum corneum. There is a mild to moderate perivascular inflammatory infiltrate composed predominantly of lymphocytes with exocytosis into the overlying epidermis. A rare cluster of Langerhans cells is present in the overlying epidermis in association with a spongiotic vesicle. Deeper levels of sectioning show similar histologic features. A GMS stain, performed with appropriately reacting controls, is negative for unequivocal hyphal or pseudohyphal fungal organisms. Signed (signature on file) Stefanie Lema MD 0303 END OF REPORT * ML=Testing performed at Main Lab DEPARTMENT OF PATHOLOGY, [address] [place] [address] Alex Stephens M.D. Director [facility] Permit #[id number] 26 Because ethnic data is not always readily available, this report includes an eGFR for both -Americans and non- Americans. The National Kidney Disease Education Program (NKDEP) does not endorse the use of the MDRD equation for patients that are not between the ages of 18 and 70, are , have extremes of body size, muscle mass, or nutritional status, or are non- or non-. According to the National Kidney Foundation, irrespective of diagnosis, the stage of the disease is based on the level of kidney function: Stage Description GFR(mL/min/1.73 m(2)) 1 Kidney damage with normal or decreased GFR 90 2 Kidney damage with mild decrease in GFR 60-89 3 Moderate decrease in GFR 30-59 4 Severe decrease in GFR 15-29 5 Kidney failure <15 (or dialysis) 27 HDL Interpretation: Undesirable: High Risk: Less than 40 MG/DL Desirable: Low Risk: Greater than 60 MG/DL 28 LDL Interpretation: Low Risk Optimal Level: LDL Less than 100 MG/DL Near or Above Optimal: LDL 100-129 MG/DL Borderline High Risk: LDL 130-159 MG/DL High Risk: LDL 160-189 MG/DL Very High Risk: LDL Greater than 189 MG/DL 29 Anion gap measurement may be of limited value in the presence of any alkalosis, especially in a combined acid base disorder. . 30 Because ethnic data is not always readily available, this report includes an eGFR for both -Americans and non- Americans. The National Kidney Disease Education Program (NKDEP) does not endorse the use of the MDRD equation for patients that are not between the ages of 18 and 70, are , have extremes of body size, muscle mass, or nutritional status, or are non- or non-. According to the National Kidney Foundation, irrespective of diagnosis, the stage of the disease is based on the level of kidney function: Stage Description GFR(mL/min/1.73 m(2)) 1 Kidney damage with normal or decreased GFR 90 2 Kidney damage with mild decrease in GFR 60-89 3 Moderate decrease in GFR 30-59 4 Severe decrease in GFR 15-29 5 Kidney failure <15 (or dialysis) 31 CHOLESTEROL INTERPRETATION: Desirable: Less than 200 MG/DL Borderline-High Risk: 200-239 MG/DL High-Risk: 240 MG/DL and over 32 HDL INTERPRETATION: Undesirable: High Risk: Less than 40 MG/DL Desirable: Low Risk: Greater than 60 MG/DL 33 LDL INTERPRETATION: Low Risk Optimal Level: LDL Less than 100 MG/DL Near or Above Optimal: LDL 100-129 MG/DL Borderline High Risk: LDL 130-159 MG/DL High Risk: LDL 160-189 MG/DL Very High Risk: LDL Greater than 189 MG/DL 34 IF LIQUID SPECIMEN, ORDER BODY FLUID CULTURE (BFSC) INSTEAD N COMMENTS: ABSCESS 35 MANY SMALL GRAM NEGATIVE BACILLI MANY GRAM POSITIVE COCCI FEW GRAM POSITIVE BACILLI MANY 36 NORMAL CUTANEOUS FRANCO SUGGEST RESUBMISSION. 37 Anion gap measurement may be of limited value in the presence of any alkalosis, especially in a combined acid base disorder. . 38 A metabolite of Naproxen, O-desmethylnaproxen, has been shown to interfere with the Jendrassik-Delway method for measuring total bilirubin. Samples from patients who have taken Naproxen have shown spurious elevation in total bilirubin levels. 39 Because ethnic data is not always readily available, this report includes an eGFR for both -Americans and non- Americans. The National Kidney Disease Education Program (NKDEP) does not endorse the use of the MDRD equation for patients that are not between the ages of 18 and 70, are , have extremes of body size, muscle mass, or nutritional status, or are non- or non-. According to the National Kidney Foundation, irrespective of diagnosis, the stage of the disease is based on the level of kidney function: Stage Description GFR(mL/min/1.73 m(2)) 1 Kidney damage with normal or decreased GFR 90 2 Kidney damage with mild decrease in GFR 60-89 3 Moderate decrease in GFR 30-59 4 Severe decrease in GFR 15-29 5 Kidney failure <15 (or dialysis) 40 CHOLESTEROL INTERPRETATION: Desirable: Less than 200 MG/DL Borderline-High Risk: 200-239 MG/DL High-Risk: 240 MG/DL and over 41 HDL INTERPRETATION: Undesirable: High Risk: Less than 40 MG/DL Desirable: Low Risk: Greater than 60 MG/DL 42 LDL INTERPRETATION: Low Risk Optimal Level: LDL Less than 100 MG/DL Near or Above Optimal: LDL 100-129 MG/DL Borderline High Risk: LDL 130-159 MG/DL High Risk: LDL 160-189 MG/DL Very High Risk: LDL Greater than 189 MG/DL 43 THERAPEUTIC TARGET FOR THE TREATMENT OF DIABETES MELLITUS PATIENTS IS <7% HBA1C, AND IN SELECTIVE PATIENTS <6.0%. PLEASE REFER TO [employer] DIABETIC CARE GUIDELINES FOR FURTHER INFORMATION. 44 Anion gap measurement may be of limited value in the presence of any alkalosis, especially in a combined acid base disorder. . 45 Because ethnic data is not always readily available, this report includes an eGFR for both -Americans and non- Americans. The National Kidney Disease Education Program (NKDEP) does not endorse the use of the MDRD equation for patients that are not between the ages of 18 and 70, are , have extremes of body size, muscle mass, or nutritional status, or are non- or non-. According to the National Kidney Foundation, irrespective of diagnosis, the stage of the disease is based on the level of kidney function: Stage Description GFR(mL/min/1.73 m(2)) 1 Kidney damage with normal or decreased GFR 90 2 Kidney damage with mild decrease in GFR 60-89 3 Moderate decrease in GFR 30-59 4 Severe decrease in GFR 15-29 5 Kidney failure <15 (or dialysis) 46 Anion gap measurement may be of limited value in the presence of any alkalosis, especially in a combined acid base disorder. . 47 Note change in reference range as of 02/01/08. The change was based on recommendations from the [employer]. 48 Because ethnic data is not always readily available, this report includes an eGFR for both -Americans and non- Americans. The National Kidney Disease Education Program (NKDEP) does not endorse the use of the MDRD equation for patients that are not between the ages of 18 and 70, are , have extremes of body size, muscle mass, or nutritional status, or are non- or non-. According to the National Kidney Foundation, irrespective of diagnosis, the stage of the disease is based on the level of kidney function: Stage Description GFR(mL/min/1.73 m(2)) 1 Kidney damage with normal or decreased GFR 90 2 Kidney damage with mild decrease in GFR 60-89 3 Moderate decrease in GFR 30-59 4 Severe decrease in GFR 15-29 5 Kidney failure <15 (or dialysis) 49 CHOLESTEROL INTERPRETATION: Desirable: Less than 200 MG/DL Borderline-High Risk: 200-239 MG/DL High-Risk: 240 MG/DL and over 50 HDL INTERPRETATION: Undesirable: High Risk: Less than 40 MG/DL Desirable: Low Risk: Greater than 60 MG/DL 51 LDL INTERPRETATION: Low Risk Optimal Level: LDL Less than 100 MG/DL Near or Above Optimal: LDL 100-129 MG/DL Borderline High Risk: LDL 130-159 MG/DL High Risk: LDL 160-189 MG/DL Very High Risk: LDL Greater than 189 MG/DL Procedures Date Code Description Status 09/04/2018 93633 Electrocardiogram Complete Completed 09/04/2018 [id number] Diabetic Foot Exam Completed 09/27/2017 [id number] Diabetic Retinal Eye Exam Completed 09/21/2017 80639 Pure Tone, Threshold Completed 09/14/2017 [id number] Colonoscopy Completed 03/23/2017 32129 Electrocardiogram Complete Completed 08/09/2016 63961 X-Ray Ribs, Unilateral, Min 3 VWS Completed 12/26/2015 72938 Electrocardiogram Complete Completed 05/08/2014 85509 Electrocardiogram Complete Completed 05/22/2013 03238 Biopsy Skin Lesion Single Completed 07/07/2012 88204 Electrocardiogram Complete Completed 07/05/2011 43002 Electrocardiogram Complete Completed 07/05/2011 94569 Electrocardiogram Complete Completed Encounters Type Date Location Provider Dx Diagnosis Office Visit 12/18/2018 Main Office Edwin Voss, H81.10 Benign paroxysmal 11:30a M.D. vertigo, unspecified ear N32.81 Overactive bladder Office Visit 11/27/2018 1:30p Main Office Brendan Lubin, E11.9 Type 2 diabetes D.O. mellitus without complications N32.81 Overactive bladder E03.8 Other specified hypothyroidism H81.10 Benign paroxysmal vertigo, unspecified ear I10 Essential (primary) hypertension Z79.84 halfway (current) use of oral hypoglycemic drugs H65.03 Acute serous otitis media, bilateral J32.9 Chronic sinusitis, unspecified Z68.36 Body mass index (BMI) 36.0-36.9, adult Office Visit 09/04/2018 8:30a Main Office Edwin Voss, E11.9 Type 2 diabetes M.D. mellitus without complications N32.81 Overactive bladder E03.8 Other specified hypothyroidism H81.10 Benign paroxysmal vertigo, unspecified ear I10 Essential (primary) hypertension Z23 Encounter for immunization Z41.8 Encntr for oth proc for purpose oth than [facility] Office Visit 03/07/2018 9:45a Main Office Edwin Voss, E11.9 Type 2 diabetes M.D. 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 mellitus without complications H81.10 Benign paroxysmal vertigo, unspecified ear E03.8 Other specified hypothyroidism I10 Essential (primary) hypertension Z86.010 Personal history of colonic polyps R07.89 Other chest pain R39.15 Urgency of urination H91.93 Unspecified hearing loss, bilateral Z23 Encounter for immunization Office Visit 06/04/2017 9:45a Main Office Edwin Voss M.D. M54.5 Low back pain M62.08 Separation of muscle (nontraumatic), other site Office Visit 03/23/2017 3:00p Main Office Edwin Voss, E11.9 Type 2 diabetes M.D. mellitus without complications I10 Essential (primary) hypertension E03.8 Other specified hypothyroidism Z23 Encounter for immunization Z13.6 Encounter for screening for cardiovascular disorders Z86.010 Personal history of colonic polyps Z41.8 Encntr for oth proc for purpose oth [facility] Office Visit 09/21/2016 1:45p Main Office Edwin Voss E11.9 Type 2 diabetes M.D. mellitus without complications I10 Essential (primary) hypertension E03.8 Other specified hypothyroidism S22.41xA Multiple fractures of ribs, right side, init for clos fx Office Visit 08/09/2016 12:55p Main Office Brendan Lubin, M54.6 Pain in thoracic D.O. spine R07.89 Other chest pain S22.41xA Multiple fractures of ribs, right side, init for clos fx W10.9xxA Fall (on) (from) unspecified stairs and steps, init encntr Y92.017 Garden or yard in single-family (private) house as place Office Visit 03/29/2016 1:30p Main Office Edwin Voss E11.9 Type 2 diabetes M.D. mellitus without complications E03.8 Other specified hypothyroidism I10 Essential (primary) hypertension Office Visit 12/26/2015 2:45p Main Office Edwin Voss E11.9 Type 2 diabetes M.D. mellitus without complications I10 Essential (primary) hypertension I73.9 Peripheral vascular disease, unspecified Office Visit 09/26/2015 4:30p Main Office Edwin Voss E11.9 Type 2 diabetes M.D. mellitus without complications I10 Essential (primary) hypertension E03.8 Other specified hypothyroidism Office Visit 06/27/2015 8:55a Main Office Edwin Voss, E11.9 Type 2 diabetes M.D. mellitus without complications I10 Essential (primary) hypertension E03.8 Other specified hypothyroidism G47.33 Obstructive sleep apnea (adult) (pediatric) E78.0 Pure hypercholesterolemia Z12.11 Encounter for screening for malignant neoplasm of colon Office Visit 12/20/2014 4:00p Main Office Edwin Voss, 250.00 Diabetes Mellitus M.D. W/O Compl Type II Or Unspec Controlled 401.1 Hypertension Benign 327.23 Obstructive Sleep Apnea Adult & Pediatric 244.8 Hypothyroidism Other Spec Office Visit 09/20/2014 4:15p Main Office Edwin Voss, 250.00 Diabetes Mellitus M.D. W/O Compl Type II Or Unspec Controlled 401.1 Hypertension Benign V76.51 Special Screening For Malignant Neoplasms Colon 272.0 Hypercholesterolemia Pure 729.1 Myalgia & Myositis Unspec Office Visit 07/08/2014 Main Office Shanika 272.0 Hypercholesterolemia Pure 4:00p Akin Pined[place] 401.1 Hypertension Benign 250.00 Diabetes Mellitus W/O Compl Type II Or Unspec Controlled Office Visit 05/08/2014 3:00p Main Office Edwin Voss, 250.00 Diabetes Mellitus M.D. W/O Compl Type II Or Unspec Controlled 790.21 Impaired Fasting Glucose 272.0 Hypercholesterolemia Pure 401.1 Hypertension Benign 244.8 Hypothyroidism Other Spec Office Visit 01/30/2014 4:00p Main Office Edwin Voss, 790.21 Impaired Fasting M.D. Glucose 401.1 Hypertension Benign 272.0 Hypercholesterolemia Pure 244.8 Hypothyroidism Other Spec 372.05 Conjunctivitis Atopic Acute Office Visit 08/30/2013 4:45p Main Office Brendan Lubin, 461.0 Sinusitis Acute D.O. Maxillary 372.05 Conjunctivitis Atopic Acute Office Visit 05/14/2013 1:45p Main Office Edwin Voss, 461.9 Sinusitis Acute M.D. Unspec 465.9 URI Upper Respiratory Infections Acute Unspec Sites 729.1 Myalgia & Myositis Unspec 272.0 Hypercholesterolemia Pure 709.9 Skin & Subcutaneous Tissue Disorders Unspec Office Visit 04/04/2013 Main Office Shanika 272.0 Hypercholesterolemia Pure 2:30p [place] 244.8 Hypothyroidism Other Spec 401.1 Hypertension Benign 729.1 Myalgia & Myositis Unspec 709.9 Skin & Subcutaneous Tissue Disorders Unspec V04.81 Need For Prophylactic Vaccination & Inoculation/Influenza V07.2 Prophylactic Immunotherapy Office Visit 01/02/2013 2:45p Main Office Edwin Voss, 790.21 Impaired Fasting M.D. Glucose 244.8 Hypothyroidism Other Spec 401.1 Hypertension Benign 272.0 Hypercholesterolemia Pure 715.09 Osteoarthrosis Generalized Multiple Sites 719.49 Pain Joint Multiple Sites V75.9 Screening Examination Infectious Disease Unspec v05.8 Single Disease Spec Other Vaccination & Inoculation v07.2 Prophylactic Immunotherapy Office Visit 09/19/2012 4:15p Main Office Edwin Voss, 461.0 Sinusitis Acute M.D. Maxillary Office Visit 08/14/2012 11:15a Main Office Edwin Voss, 466.0 Bronchitis Acute M.D. 780.60 Fever, Unspecified Office Visit 07/07/2012 9:30a Main Office Edwin Voss, 401.1 Hypertension Benign M.D. 790.21 Impaired Fasting Glucose 272.0 Hypercholesterolemia Pure 244.8 Hypothyroidism Other Spec V65.49 Counseling Other Spec Office Visit 05/12/2012 1:40p Main Office Rosanna Navarro, 461.2 Sinusitis Acute P.A. Ethmoidal Office Visit 01/03/2012 9:15a Main Office Edwin Voss, 790.21 Impaired Fasting M.D. Glucose 401.1 Hypertension Benign 272.0 Hypercholesterolemia Pure 244.8 Hypothyroidism Other Spec V65.49 Counseling Other Spec 278.00 Obesity Unspec Office Visit 07/05/2011 9:45a Main Office Edwin Voss, 790.21 Impaired Fasting M.D. Glucose 401.1 Hypertension Benign 244.8 Hypothyroidism Other Spec 272.0 Hypercholesterolemia Pure 366.9 Cataract Unspec Office Visit 02/24/2011 11:15a Main Office Edwin Voss, 327.23 Obstructive Sleep M.D. Apnea Adult & Pediatric V04.81 Need For Prophylactic Vaccination & Inoculation/Influenza V07.2 Prophylactic Immunotherapy Office Visit 01/20/2011 8:55a Main Office Edwin Voss, 790.21 Impaired Fasting M.D. Glucose 454.9 Varicose Veins Lower Extrem Asymptomatic Varicose Veins 401.1 Hypertension Benign 244.8 Hypothyroidism Other Spec 272.0 Hypercholesterolemia Pure Office Visit 12/11/2010 Main Office Shanika 682.5 Cellulitis & Abscess 4:30p Akin Pineda Buttock Office Visit 12/08/2010 Main Office Shanika 682.5 Cellulitis & Abscess 11:30a Akin Pineda Buttock Office Visit 10/07/2010 Main Office [place], 272.0 Hypercholesterolemia Pure 3:00p [place] 790.21 Impaired Fasting Glucose 278.00 Obesity Unspec Office Visit 09/21/2010 9:15a Main Office Edwin Voss, 401.1 Hypertension Benign M.D. 244.8 Hypothyroidism Other Spec 272.0 Hypercholesterolemia Pure 790.21 Impaired Fasting Glucose V65.49 Counseling Other Spec v03.82 Streptococcus Pneumoniae Vaccination Spec Other v06.1 Lksbpysyrm-Ryxiezf-Jmmnqgqm Combined (DTaP) v07.2 Prophylactic Immunotherapy Office Visit 05/15/2010 3:00p Main Office Rosanna Navarro, 461.2 Sinusitis Acute P.A. Ethmoidal Office Visit 03/13/2010 2:30p Main Office Edwin Voss, 401.1 Hypertension Benign M.D. 244.8 Hypothyroidism Other Spec 272.0 Hypercholesterolemia Pure 790.21 Impaired Fasting Glucose Office Visit 09/09/2009 2:00p Main Office Edwin Voss, 401.1 Hypertension Benign M.D. 244.8 Hypothyroidism Other Spec 477.9 Rhinitis Allergic Cause Unspec 719.49 Pain Joint Multiple Sites 272.0 Hypercholesterolemia Pure V04.81 Need For Prophylactic Vaccination & Inoculation/Influenza 715.09 Osteoarthrosis Generalized Multiple Sites Plan of Treatment Future Appointment(s):03/07/2019 9:00 am - Edwin Voss M.D. at Main [facility]/18/2018 - Edwin Voss M.D.H81.10 Benign paroxysmal vertigo, unspecified earNew Medication:Meclizine HCL 25 mg - take 1 tablet by mouth every 6 hours as needed for vertigoComments:Continue to do modified Isaiah's, Try meclizine, discussed how this med could interefere w/ brain adaptation to vertigo and to only use it if really needing it.DIscussed PT wc he declined noting he had PT for vertigo in the past, no more helpful than doing modified Isaiah's.Discussed option of ENT referral wc was declined at this time.Discussed need to report back if Sxs progressive or not seeing improvement over the course of a couple of weeks.N32.81 Overactive bladderComments:Discussed that failure to respond to low dose oxybutynin did not mean he wouldn't respond to a higher dose, that we could try this down the road (but would hold off while addressing vertigo elsie using meclizine wc has a similar S/E profile).
[2019-01-09 19:11] LABS: Urine Appearance Clear; Urine Bilirubin Negative (Negative); Urine Blood Negative (Negative); Urine Color Yellow; Urine Glucose Negative (Negative); Urine Ketones Negative (Negative); Urine Nitrite Negative (Negative); Urine Protein Negative (Negative); Urine Specific Gravity 1.011 (1.010-1.030); Urine Urobilinogen Negative (Negative)
[2019-01-09 19:26] LABS: ABS Basophils 0.1 10^3/ul (0-0.2); ABS Eosinophils 0.2 10^3/ul (0-0.6); ABS Monocytes 1.4 10^3/ul (0-0.8); ABS Neutrophils 8.1 10^3/ul (1.5-7.7); Eosinophil % 1.6 %; Hematocrit 45 % (42-52); Lymphocyte % 17.1 %; Mean Corpuscular HGB Conc 33 g/dL (31-36); Mean Corpuscular Hemoglobin 30 pg (27-31); Mean Corpuscular Volume 90 fL (80-94); Mean Platelet Volume 8.2 fL (7.4-10.4); Platelet Count 233 10^3/uL (150-450); Red Blood Count 4.99 10^6 /uL (4.18-5.48); Red Cell Distribution Width 14 % (10-15); White Blood Count 11.7 10^3/uL (3.5-10.8)
[2019-01-09 19:43] LABS: Albumin 4.7 g/dL (3.2-5.2); Albumin/Globulin Ratio 1.3 (1-3); BUN/Creatinine Ratio 18.5 (8-20); C Reactive Protein 133.45 mg/L (<8.01); Calcium 10.7 mg/dL (8.6-10.3); EGFR African American 82.5 (>60); EGFR Non-African American 68.2 (>60); Globulin 3.5 g/dL (2-4); Potassium 4.2 mmol/L (3.5-5.0); Total Bilirubin 1.4 mg/dL (0.2-1.0); Total Protein 8.2 g/dL (6.4-8.9)
--- NOTE | 2019-01-09 22:29 | ED ---
Abdominal Pain/Male - HPI Summary HPI Summary: This patient is a 68 year old M presenting to [facility] accompanied by with a chief complaint of RLQ abdominal pain radiating to groin since morning of . Patient reports nml urination and hernia in abdomen. Patient denies vomiting , loss of appetite, and Hx of kidney stones. Pt had PMHx of thyroid issues, diabetes, and HTN. Symptoms aggravated by coughing. - History of Current Complaint Chief Complaint: EDAbdPain Stated Complaint: ABD PAIN PER PT Time Seen by Provider: 01/09/19 22:25 Hx Obtained From: Patient Onset/Duration: Lasting Days, Still Present Timing: Constant Severity Initially: Severe Severity Currently: Severe Pain Intensity: 10 Pain Scale Used: 0-10 Numeric Location: Diffuse, Discrete At: RLQ Radiates: Yes Radiates to: Other - Groin Aggravating Factor(s): Other: - pos - coughing Associated Signs And Symptoms: Negative: Urinary Symptoms, Decreased Appetite, Vomiting - Allergies/Home Medications Allergies/Adverse Reactions: Allergies Allergy/AdvReac Type Severity Reaction Status Date / Time atorvastatin [From Lipitor] Allergy Rash And Verified 01/09/19 18:48 Itching Nfgsprb-Xxb-Zyt Reductase Allergy Leg Cramps Verified 01/09/19 18:48 Inhibitor Home Medications: Home Medications Meclizine HCl [Dramamine Less Drowsy] 25 mg PO TID PRN 01/09/19 [History Confirmed 01/09/19] PMH/Surg Hx/FS Hx/Imm Hx Sensory History: Denies: Hx Legally Blind, Hx Deafness EENT History: Denies: Hx Deafness Infectious Disease History: No Infectious Disease History: Denies: Traveled Outside the [place] in Last 30 Days - Family History Known Family History: Positive: Hypertension, Diabetes - Social History Occupation: Retired Lives: With Family Alcohol Use: None Substance Use Type: Reports: None Hx Tobacco Use: Yes Smoking Status (MU): Former Smoker Review of Systems Positive: Other - neg - loss of appetite Positive: Abdominal Pain. Negative: Vomiting All Other Systems Reviewed And Are Negative: Yes Physical Exam - Summary Physical Exam Summary: VITAL SIGNS: Reviewed. GENERAL: Patient is a well-developed and nourished male who is lying comfortable in the stretcher. Patient is not in any acute respiratory distress. HEAD AND FACE: No signs of trauma. No ecchymosis, hematomas or skull depressions. No sinus tenderness. EYES: PERRLA, EOMI x 2, No injected conjunctiva, no nystagmus. EARS: Hearing grossly intact. Ear canals and tympanic membranes are within normal limits. MOUTH: Oropharynx within normal limits. NECK: Supple, trachea is midline, no adenopathy, no JVD, no carotid bruit, no c- spine tenderness, neck with full ROM CHEST: Symmetric, no tenderness at palpation LUNGS: Clear to auscultation bilaterally. No wheezing or crackles. CVS: Regular rate and rhythm, S1 and S2 present, no murmurs or gallops appreciated. ABDOMEN: Soft. No guarding, and no masses palpated. Belly distended, RLQ tenderness with rebound, shifting tenderness, hypoactive bowel sounds EXTREMITIES: FROM in all major joints, no edema, no cyanosis or clubbing. NEURO: Alert and oriented x 3. No acute neurological deficits. Speech is normal and follows commands. SKIN: Dry and warm Triage Information Reviewed: Yes Vital Signs On Initial Exam: Initial Vitals Temp Pulse Resp BP Pulse Ox 100.2 F 82 16 151/83 97 01/09/19 18:44 01/09/19 18:44 01/09/19 18:44 01/09/19 18:44 01/09/19 18:44 Vital Signs Reviewed: Yes Diagnostics - Vital Signs Vital Signs Temp Pulse Resp BP Pulse Ox 01/09/19 21:13 98 F 76 14 151/72 95 01/09/19 18:44 100.2 F 82 16 151/83 97 - Laboratory Lab Results: Lab Results 01/09/19 01/09/19 01/09/19 Range/Units 15:00 19:00 19:20 WBC 11.7 H (3.5-10.8) 10^3/uL RBC 4.99 (4.18-5.48) 10^6 /uL Hgb 15.0 (14.0-18.0) g/dL Hct 45 (42-52) % MCV 90 (80-94) fL MCH 30 (27-31) pg MCHC 33 (31-36) g/dL RDW 14 (10-15) % Plt Count 233 (150-450) 10^3/uL MPV 8.2 (7.4-10.4) fL Neut % (Auto) 68.9 % Lymph % (Auto) 17.1 % Noble % (Auto) 11.9 % Eos % (Auto) 1.6 % Baso % (Auto) 0.5 % Absolute Neuts (auto) 8.1 H (1.5-7.7) 10^3/ul Absolute Lymphs (auto) 2.0 (1.0-4.8) 10^3/ul Absolute Monos (auto) 1.4 H (0-0.8) 10^3/ul Absolute Eos (auto) 0.2 (0-0.6) 10^3/ul Absolute Basos (auto) 0.1 (0-0.2) 10^3/ul Absolute Nucleated RBC 0.0 10^3/ul Nucleated RBC % 0.0 Sodium (135-145) mmol/L Potassium (3.5-5.0) mmol/L Chloride (101-111) mmol/L Carbon Dioxide (22-32) mmol/L Anion Gap (2-11) mmol/L BUN (6-24) mg/dL Creatinine (0.67-1.17) mg/dL Est GFR ( Amer) (>60) Est GFR (Non-Af Amer) (>60) BUN/Creatinine Ratio (8-20) Glucose (70-100) mg/dL Lactic Acid 1.6 (0.5-2.0) mmol/L Calcium (8.6-10.3) mg/dL Total Bilirubin (0.2-1.0) mg/dL AST (13-39) U/L ALT (7-52) U/L Alkaline Phosphatase (34-104) U/L C-Reactive Protein (<8.01) mg/L Total Protein (6.4-8.9) g/dL Albumin (3.2-5.2) g/dL Globulin (2-4) g/dL Albumin/Globulin Ratio (1-3) Lipase (11.0-82.0) U/L Urine Color Yellow Urine Appearance Clear Urine pH 7.0 (5-9) Ur Specific [place] 1.011 (1.010-1.030) Urine Protein Negative (Negative) Urine Ketones Negative (Negative) Urine Blood Negative (Negative) Urine Nitrate Negative (Negative) Urine Bilirubin Negative (Negative) Urine Urobilinogen Negative (Negative) Ur Leukocyte Esterase Negative (Negative) Urine Glucose Negative (Negative) 07/30/19 Range/Units 19:20 WBC (3.5-10.8) 10^3/uL RBC (4.18-5.48) 10^6 /uL Hgb (14.0-18.0) g/dL Hct (42-52) % MCV (80-94) fL MCH (27-31) pg MCHC (31-36) g/dL RDW (10-15) % Plt Count (150-450) 10^3/uL MPV (7.4-10.4) fL Neut % (Auto) % Lymph % (Auto) % Noble % (Auto) % Eos % (Auto) % Baso % (Auto) % Absolute Neuts (auto) (1.5-7.7) 10^3/ul Absolute Lymphs (auto) (1.0-4.8) 10^3/ul Absolute Monos (auto) (0-0.8) 10^3/ul Absolute Eos (auto) (0-0.6) 10^3/ul Absolute Basos (auto) (0-0.2) 10^3/ul Absolute Nucleated RBC 10^3/ul Nucleated RBC % Sodium 136 (135-145) mmol/L Potassium 4.2 (3.5-5.0) mmol/L Chloride 98 L (101-111) mmol/L Carbon Dioxide 31 (22-32) mmol/L Anion Gap 7 (2-11) mmol/L BUN 20 (6-24) mg/dL Creatinine 1.08 (0.67-1.17) mg/dL Est GFR ( Amer) 82.5 (>60) Est GFR (Non-Af Amer) 68.2 (>60) BUN/Creatinine Ratio 18.5 (8-20) Glucose 142 H (70-100) mg/dL Lactic Acid (0.5-2.0) mmol/L Calcium 10.7 H (8.6-10.3) mg/dL Total Bilirubin 1.40 H (0.2-1.0) mg/dL AST 17 (13-39) U/L ALT 24 (7-52) U/L Alkaline Phosphatase 51 (34-104) U/L C-Reactive Protein 133.45 H (<8.01) mg/L Total Protein 8.2 (6.4-8.9) g/dL Albumin 4.7 (3.2-5.2) g/dL Globulin 3.5 (2-4) g/dL Albumin/Globulin Ratio 1.3 (1-3) Lipase 28 (11.0-82.0) U/L Urine Color Urine Appearance Urine pH (5-9) Ur Specific [place] (1.010-1.030) Urine Protein (Negative) Urine Ketones (Negative) Urine Blood (Negative) Urine Nitrate (Negative) Urine Bilirubin (Negative) Urine Urobilinogen (Negative) Ur Leukocyte Esterase (Negative) Urine Glucose (Negative) Result Diagrams: 01/09/19 19:20 01/09/19 19:20 Lab Statement: Any lab studies that have been ordered have been reviewed, and results considered in the medical decision making process. - CT Abdomen/Pelvis CT CT Interpretation Completed By: Radiologist Summary of CT Findings: Abdomen/Pelvis CT reveals, per radiologist, There is colonic diverticulosis with wall thickening and fat stranding in the sigmoid colon consistent with acute diverticulitis. There is a tiny air locule in the inflamed pericolonic fat adjacent to the sigmoid colon suspicious for small contained perforation but no abscess. ED physician has reviewed this radiology report. Re-Evaluation - Re-Evaluation First Eval Re-Evaluation Time: 01:32 Comment: Discussed results and plan of care with pt. Abdominal Pain Male Course/Dx - Course Course Of Treatment: This patient is a 68 year old M presenting to [facility] accompanied by with a chief complaint of RLQ abdominal pain radiating to groin since morning of 01/08/19. Patient reports nml urination and hernia in abdomen. Patient denies vomiting, loss of appetite, and Hx of kidney stones. Pt had PMHx of thyroid issues, diabetes, and HTN. Physical Exam Findings are belly distended, RLQ tenderness with rebound, shifting tenderness, hypoactive bowel sounds. Blood work obtained. WBC is 11.7, Chloride is 98, Glucose is 142 , Calcium is 10.7, Total Bilirubin is 1.40, C - reactive protein is 133.45. UA obtained. Abdomen/Pelvis CT reveals, per radiologist, There is colonic diverticulosis with wall thickening and fat stranding in the sigmoid colon consistent with acute diverticulitis. There is a tiny air locule in the inflamed pericolonic fat adjacent to the sigmoid colon suspicious for small contained perforation but no abscess. In the ED course the patient was given morphine, Zofran, Piperacillin/Tazobac, and fluids. Discussed patient's case with Dr. Comer who accepts pt for admission. Patient will be admitted with and follow up from PCP. The patient is agreeable with this plan. - Diagnoses Provider Diagnoses: Sigmoid diverticulosis - Provider Notifications Discussed Care Of Patient With: Brook Comer Time Discussed With Above Provider: 01:38 Instructed by Provider To: Other - Discussed patient's case with Dr. Comer, who accepts pt for admission. Discharge - Sign-Out/Discharge Documenting (check all that apply): Patient Departure - Admit Patient Received Moderate/Deep Sedation with Procedure: No - Discharge Plan Condition: Good Disposition: ADMITTED TO [facility] - Attestation Statements Document Initiated by Ivetibe: Yes Documenting Scribe: Dulce West Provider For Whom Ivetibe is Documenting (Include Credential): Dr. Isidro Freeman MD Scribe Attestation: Dulce Quevedo scribed for Dr. Isidro Freeman MD on 01/10/19 at 0139. Status of Scribe Document: Ready
[2019-01-09] MEDS ORDERED: Ondansetron INJ* 2 MG/ML VIAL IV ONE (22:32)
[2019-01-09] MEDS ORDERED: NS 0.9% 1000 ML** 1,000 ML IV ONE (22:32)
[2019-01-09] MEDS ORDERED: Morphine 4 MG/ML VIAL (1 ml) 4 MG/ML VIAL IV ONE (22:32)
[2019-01-09] MEDS ORDERED: Piperacillin/Tazobac ADVAN(*) 3.375 GM in NS 0.9% 100 ML* 100 ML IVPB ONE (22:33)
[2019-01-09] MEDS ORDERED: Iodixanol 320 (CONTRAST) 100 ML SDV IV ONE (22:50)
[2019-01-10] MEDS ORDERED: Morphine 4 MG/ML VIAL (1 ml) 4 MG/ML VIAL IV ONE (01:39)
[2019-01-10] MEDS ORDERED: oxyCODONE TAB* 5 MG TAB PO PRN (02:08)
[2019-01-10] MEDS ORDERED: Morphine 4 MG/ML VIAL (1 ml) 4 MG/ML VIAL IV PRN (02:08)
[2019-01-10] MEDS ORDERED: Acetaminophen TAB* 325 MG PO PRN (02:08)
[2019-01-10] MEDS ORDERED: Meclizine TAB* 12.5 MG PO PRN (02:10)
[2019-01-10] MEDS ORDERED: Dextrose 50% VIAL 50 ml IV PUSH PRN (02:12)
[2019-01-10] MEDS ORDERED: Enoxaparin(*) 40 MG/0.4 ML SYR SUBCUT SCH (03:00)
[2019-01-10] MEDS ORDERED: Zosyn per Pharmacy* NOTE FOLLOW UP SCH (03:00)
[2019-01-10] MEDS: NS 0.9% 1000 ML** 1,000 ML IV SCH ×2 (04:29→14:05)
[2019-01-10] MEDS: ZOSYN 3.375 GM Q8H per EXTENDED INFUSION IVPB SCH ×4 (04:48→12:05)
--- NOTE | 2019-01-10 05:06 | HP ---
CC: Dr. Voss * HISTORY AND PHYSICAL: DATE OF ADMISSION: 01/10/19 PRIMARY CARE PROVIDER: Dr. Voss. CHIEF COMPLAINT: Abdominal pain. HISTORY OF PRESENT ILLNESS: Mr. Emanuel is a 68-year-old obese male who has a history of hypertension, type 2 diabetes, and hypothyroidism, who presents to the emergency room with complaints of right lower quadrant abdominal pain. The patient states that about 8:30 a.m. on Tuesday01/08/19 he had awakened from sleep feeling essentially normal. He had a bowel movement that was slightly looser than normal but generally similar to his baseline. As the morning progressed, he developed right lower quadrant abdominal pain that became progressively worse over the course of Tuesday and Tuesday. The pain continued to progress through Tuesday and ultimately he presented to the emergency room around 10:30 p.m. The patient states that the pain is sharp and stabbing in nature. He also states that when there is gas moving through he feels pain radiating down into his groin. He reports normal bowel movements on Tuesday and Tuesday without any blood. He denies any fevers but does state that he has had some chills recently. PAST MEDICAL HISTORY: 1. Hypertension. 2. Hypothyroidism. 3. OA. 4. Type 2 diabetes. 5. Vertigo. PAST SURGICAL HISTORY: 1. Bilateral cataract extraction. 2. Umbilical hernia repair. 3. Tonsillectomy. ALLERGIES: Zocor. MEDICATIONS: 1. Meclizine 25 mg p.o. t.i.d. p.r.n. dizziness. 2. Levothyroxine 200 mcg p.o. daily. 3. Metformin 500 mg p.o. b.i.d. 4. Amlodipine 5 mg p.o. daily. 5. Losartan 25 mg p.o. daily. 6. Ibuprofen 200 mg p.o. q.8 hours p.r.n. pain. 7. Hydrochlorothiazide 25 mg p.o. daily. 8. Flonase 1 squirt to each nostril daily. 9. Atenolol 25 mg p.o. daily. FAMILY HISTORY: Mom at the age of 84 of lung cancer; she also had a history of cervical cancer. Dad at the age of 92 of CHF. SOCIAL HISTORY: The patient is a nonsmoker. He does not drink alcohol. 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 He now does wood carving as a hobby. He is . He has 2 children. His Stacey is his healthcare proxy. REVIEW OF SYSTEMS: A complete 11-system review of systems was obtained. Pertinent positives and negatives are as per HPI and in addition the patient does complain of dysuria over the last 2 days. The rest of the review of systems is negative. PHYSICAL EXAMINATION GENERAL: The patient is a well-developed, middle-aged obese male, seen lying in the stretcher, in no acute distress. VITAL SIGNS: Blood pressure 131/75; pulse 77; respirations 16; T-max 100.2, current temp 98; O2 sat 94% on room air. HEENT: Pupils are equal and round. Extraocular muscles are intact. Oropharynx is clear. Oral mucosa is moist. NECK: There is no submandibular, cervical or supraclavicular adenopathy. Thyroid is not enlarged. No thyroid nodules noted. PULMONARY: Lungs are clear to auscultation bilaterally. CARDIAC: Normal S1 and S2. Regular rate and rhythm. I do not appreciate any murmurs. There is no lower extremity edema. ABDOMEN: Bowel sounds are present. Abdomen is obese, soft, nondistended. He is tender to palpation in the right lower quadrant. MUSCULOSKELETAL: There is no cyanosis or clubbing of the digits. There is full active range of motion of all 4 extremities. SKIN: Warm and dry. There are no rashes. NEUROLOGIC: Cranial nerves II through XII are grossly intact. Sensation is intact to light touch throughout. Strength is 5/5 and symmetric to both upper and lower extremities bilaterally. PSYCH: The patient is alert. He is oriented x3. Affect appears appropriate. DIAGNOSTIC STUDIES/LAB DATA: WBC 11.7, hemoglobin 15.0, hematocrit 45, platelets 233. Sodium 136, potassium 4.2, chloride 98, CO2 31, BUN 20, creatinine 1.08, glucose 142, lactic acid 1.6, calcium 10.7. Bilirubin 1.4, AST 17, ALT 24, alk phos 51. CRP 133.45. Albumin 4.7, lipase 28. Urinalysis reveals specific gravity of 1.011 and is negative for signs of infection. CT abdomen and pelvis: There is colonic diverticulosis with wall thickening and fat stranding in the sigmoid colon consistent with acute diverticulitis. There is a tiny air bubble in the inflamed pericolonic fat adjacent to the sigmoid colon suspicious for a small contained perforation but no abscess is noted. ASSESSMENT AND PLAN: Mr. Emanuel is a 68-year-old male with a history of hypertension, type 2 diabetes, and hypothyroidism who presented to the emergency room with complaints of abdominal pain and is found to have acute diverticulitis. 1. Acute diverticulitis. At this point, the patient is nontoxic appearing. He does, however, have a microperforation. It is cole at this time to admit the patient to the hospital to receive IV fluids and IV antibiotics. Serial abdominal exams will be needed to ensure that the microperforation remained stable. 2. Hypertension. Blood pressure has been under good control. He will be maintained on his usual home medication regimen except holding his hydrochlorothiazide. 3. Hypothyroidism. Continue current dose of Synthroid. 4. Type 2 diabetes. I am going to hold the patient's metformin and start fingersticks a.c. and h.s. with a lispro sliding scale. 5. DVT prophylaxis. According to the Adult Thrombosis Prophylaxis Risk Factor Assessment Guide, the patient has a total risk factor score of 3, making him high risk. Lovenox 40 mg subcutaneous q.24 hours will be utilized as DVT prophylaxis. 6. Code status is full. TIME SPENT: Sixty-five minutes was spent admitting this patient, of which greater than half was spent face to face with the patient, reviewing his history and performing physical exam. [id number]/[facility] #: [id number] MTDD
[2019-01-10] MEDS: Levothyroxine TAB* 100 MCG TAB PO SCH (05:21)
--- NOTE | 2019-01-10 08:05 | PN ---
Hospitalist Progress Note Date of Service: 01/10/19 Attending Assessment and Plan I have reviewed the subjective and objective and resident note and agree with findings of which I supervised HD # 2 on 01/10 68M PMH HTN, NIDDM, hypothyroid presenting with acute diverticulitis and c/b non symptomatic microperferation #Acute diveritculitis: c/b microperfration seen on CT -Descalate abx, no e/o high risk, Cipro/Flagyl Day 2/ _ on 01/10 -NPO -Surgery to consult #NIDDM: home meds #Hypothryoid: Home meds #HTN: Home meds #DVT: Lovenox #Code: Full
[2019-01-10] MEDS: Insulin LISPRO* 1 UNITS UNIT SUBCUT SCH ×3 (09:17→17:16)
[2019-01-10] MEDS: Losartan TAB* 25 MG PO SCH (09:19)
[2019-01-10] MEDS: Atenolol TAB* 25 MG PO SCH (09:19)
[2019-01-10] MEDS: amLODIPine TAB* 5 MG PO SCH (09:19)
[2019-01-10] MEDS: Enoxaparin(*) 40 MG/0.4 ML SYR SUBCUT SCH (09:25)
[2019-01-10] MEDS: Ciprofloxacin 400MG IVPREMIX(* 400 MG/200 ML BAG IVPB SCH (14:05)
--- NOTE | 2019-01-10 15:06 | PN ---
Subjective Date of Service: 01/10/19 Interval History: Patient felt abdominal pain improved from yesterday. No more fever, chills. Last meal was last dinner, on clear fluid currently. Objective Active Medications: Acetaminophen (Tylenol Tab*) 650 mg PO Q4H PRN PRN Reason: mild pain Amlodipine Besylate (Norvasc Tab*) 5 mg PO DAILY [facility] Last Admin: 01/10/19 09:19 Dose: 5 mg Atenolol (Tenormin Tab*) 25 mg PO DAILY [facility] Last Admin: 01/10/19 09:19 Dose: 25 mg Dextrose (Dextrose 50% Vial 50 Ml*) 25 ml IV PUSH .FOR FS < 60 - SS PRN PRN Reason: FS < 60 Enoxaparin Sodium (Lovenox(*)) 40 mg SUBCUT Q24H [facility] Last Admin: 01/10/19 09:25 Dose: 40 mg Sodium Chloride (Ns 0.9% 1000 Ml) 1,000 mls @ 100 mls/hr IV PER RATE [facility] Last Admin: 01/10/19 14:05 Dose: 100 mls/hr Ciprofloxacin/Dextrose (Cipro 400 Mg Ivpremix(*)) 400 mg in 200 mls @ 200 mls/ hr IVPB Q12H [facility]; Protocol Last Admin: 01/10/19 14:05 Dose: 200 mls/hr Metronidazole/Sodium Chloride (Flagyl 500 Mg Ivpb*) 500 mg in 100 mls @ 100 mls /hr IVPB Q8H [facility] Insulin Human Lispro (Humalog*) 0 units SUBCUT ACHS [facility]; Protocol Last Admin: 01/10/19 12:05 Dose: Not Given Levothyroxine Sodium (Synthroid Tab*) 200 mcg PO DAILY@0600 [facility] Last Admin: 01/10/19 05:21 Dose: 200 mcg Losartan Potassium (Cozaar Tab*) 25 mg PO DAILY [facility] Last Admin: 01/10/19 09:19 Dose: 25 mg Meclizine HCl (Antivert Tab*) 25 mg PO TID PRN PRN Reason: DIZZINESS Morphine Sulfate (Morphine 4 Mg/Ml Vial (1 Ml)) 4 mg IV Q4H PRN PRN Reason: SEVERE PAIN Oxycodone HCl (Roxycodone Tab*) 5 mg PO Q4H PRN PRN Reason: moderate pain Vital Signs - 8 hr 01/10/19 01/10/19 01/10/19 07:55 08:00 11:36 Temperature 98.6 F 98.1 F Pulse Rate 69 62 Respiratory 15 18 16 Rate Blood Pressure 116/59 103/54 (mmHg) O2 Sat by Pulse 93 94 Oximetry Oxygen Devices in Use Now: None Exam: Not in distress Heart normal S1, S2, no murmur Lung clear Abdomen: RLQ tenderness, rebound tenderness+, no rigidity Calves: supple Result Diagrams: 01/09/19 19:20 01/09/19 19:20 Additional Lab and Data: Lab Results 01/09/19 01/09/19 01/09/19 Range/Units 15:00 19:00 19:20 WBC 11.7 H (3.5-10.8) 10^3/uL RBC 4.99 (4.18-5.48) 10^6 /uL Hgb 15.0 (14.0-18.0) g/dL Hct 45 (42-52) % MCV 90 (80-94) fL MCH 30 (27-31) pg MCHC 33 (31-36) g/dL RDW 14 (10-15) % Plt Count 233 (150-450) 10^3/uL MPV 8.2 (7.4-10.4) fL Neut % (Auto) 68.9 % Lymph % (Auto) 17.1 % Hitchcock % (Auto) 11.9 % Eos % (Auto) 1.6 % Baso % (Auto) 0.5 % Absolute Neuts (auto) 8.1 H (1.5-7.7) 10^3/ul Absolute Lymphs (auto) 2.0 (1.0-4.8) 10^3/ul Absolute Monos (auto) 1.4 H (0-0.8) 10^3/ul Absolute Eos (auto) 0.2 (0-0.6) 10^3/ul Absolute Basos (auto) 0.1 (0-0.2) 10^3/ul Absolute Nucleated RBC 0.0 10^3/ul Nucleated RBC % 0.0 Sodium (135-145) mmol/L Potassium (3.5-5.0) mmol/L Chloride (101-111) mmol/L Carbon Dioxide (22-32) mmol/L Anion Gap (2-11) mmol/L BUN (6-24) mg/dL Creatinine (0.67-1.17) mg/dL Est GFR ( Amer) (>60) Est GFR (Non-Af Amer) (>60) BUN/Creatinine Ratio (8-20) Glucose (70-100) mg/dL Lactic Acid 1.6 (0.5-2.0) mmol/L Calcium (8.6-10.3) mg/dL Total Bilirubin (0.2-1.0) mg/dL AST (13-39) U/L ALT (7-52) U/L Alkaline Phosphatase (34-104) U/L C-Reactive Protein (<8.01) mg/L Total Protein (6.4-8.9) g/dL Albumin (3.2-5.2) g/dL Globulin (2-4) g/dL Albumin/Globulin Ratio (1-3) Lipase (11.0-82.0) U/L Urine Color Yellow Urine Appearance Clear Urine pH 7.0 (5-9) Ur Specific Perham 1.011 (1.010-1.030) Urine Protein Negative (Negative) Urine Ketones Negative (Negative) Urine Blood Negative (Negative) Urine Nitrate Negative (Negative) Urine Bilirubin Negative (Negative) Urine Urobilinogen Negative (Negative) Ur Leukocyte Esterase Negative (Negative) Urine Glucose Negative (Negative) 01/09/19 Range/Units 19:20 WBC (3.5-10.8) 10^3/uL RBC (4.18-5.48) 10^6 /uL Hgb (14.0-18.0) g/dL Hct (42-52) % MCV (80-94) fL MCH (27-31) pg MCHC (31-36) g/dL RDW (10-15) % Plt Count (150-450) 10^3/uL MPV (7.4-10.4) fL Neut % (Auto) % Lymph % (Auto) % Hitchcock % (Auto) % Eos % (Auto) % Baso % (Auto) % Absolute Neuts (auto) (1.5-7.7) 10^3/ul Absolute Lymphs (auto) (1.0-4.8) 10^3/ul Absolute Monos (auto) (0-0.8) 10^3/ul Absolute Eos (auto) (0-0.6) 10^3/ul Absolute Basos (auto) (0-0.2) 10^3/ul Absolute Nucleated RBC 10^3/ul Nucleated RBC % Sodium 136 (135-145) mmol/L Potassium 4.2 (3.5-5.0) mmol/L Chloride 98 L (101-111) mmol/L Carbon Dioxide 31 (22-32) mmol/L Anion Gap 7 (2-11) mmol/L BUN 20 (6-24) mg/dL Creatinine 1.08 (0.67-1.17) mg/dL Est GFR ( Amer) 82.5 (>60) Est GFR (Non-Af Amer) 68.2 (>60) BUN/Creatinine Ratio 18.5 (8-20) Glucose 142 H (70-100) mg/dL Lactic Acid (0.5-2.0) mmol/L Calcium 10.7 H (8.6-10.3) mg/dL Total Bilirubin 1.40 H (0.2-1.0) mg/dL AST 17 (13-39) U/L ALT 24 (7-52) U/L Alkaline Phosphatase 51 (34-104) U/L C-Reactive Protein 133.45 H (<8.01) mg/L Total Protein 8.2 (6.4-8.9) g/dL Albumin 4.7 (3.2-5.2) g/dL Globulin 3.5 (2-4) g/dL Albumin/Globulin Ratio 1.3 (1-3) Lipase 28 (11.0-82.0) U/L Urine Color Urine Appearance Urine pH (5-9) Ur Specific Perham (1.010-1.030) Urine Protein (Negative) Urine Ketones (Negative) Urine Blood (Negative) Urine Nitrate (Negative) Urine Bilirubin (Negative) Urine Urobilinogen (Negative) Ur Leukocyte Esterase (Negative) Urine Glucose (Negative) Assess/Plan/Problems-Billing Assessment: Mr Emanuel is a 68 y/o male with b/g HTN, T2DM, hypothyroidism, presented to ED with sudden onset of RLQ pain with a documented fever 100.2F, CT abdomen revealed acute diverticulitis with microperforation. He is currently under medical treatment with clear fluid and IV Zosyn. He will benefit from serial abdominal check and surgical consult in view of microperforation. - Patient Problems (1) Diverticulitis Current Visit: Yes Status: Acute Code(s): K57.92 - DVTRCLI OF INTEST, PART UNSP, W/O PERF OR ABSCESS W/O BLEED SNOMED Code(s): 264185412 Comment: - Acute diverticulitis with microperforation - no history of diverticulitis before - change abx to IV cipro and flagyl for better GI coverage - NPO for now, pain management. - surgical consult in view of microperforation (2) Diabetes 1.5, managed as type 2 Current Visit: Yes Status: Acute Code(s): E13.9 - OTHER SPECIFIED DIABETES MELLITUS WITHOUT COMPLICATIONS SNOMED Code(s): 099891508 (3) Hypertension Current Visit: Yes Status: Acute Code(s): I10 - ESSENTIAL (PRIMARY) HYPERTENSION SNOMED Code(s): 29791523 Status and Disposition: inpatient medicine Attestation Documenting Resident: Priya Anand Supervising Physician: Landy Flowers Attestation: This service has been performed in part by a resident under the direction of a teaching physician.I, Landy Flowers, performed the service, or was physically present during the critical, or sheridan portions of the service, furnished by the resident. I participated in the management of the patient.
--- NOTE | 2019-01-10 15:31 | CONSULT ---
Consult Consult: I saw and evaluated the patient with ALFREDO and consultation note is pending. Dx: Complicated divertulitis- imroving Plan: Antibiotics bowel rest serial abdo exams will follow
[2019-01-10] MEDS: metroNIDAZOLE IV 500 MG/100ML* 500 MG/100 ML BAG IVPB SCH ×2 (16:32→23:48)
--- NOTE | 2019-01-10 17:50 | CONS ---
CC: Dr. Hernandez, [facility]; Dr. Ewdin Voss * CONSULTATION NOTE: DATE OF CONSULT: 01/10/19 LOCATION: This patient was seen in room 347 at [facility]. CHIEF COMPLAINT: Abdominal pain. HISTORY OF PRESENT ILLNESS: The patient is a 68-year-old male admitted to the hospitalist service on 01/10/19 after he presented to the emergency department with abdominal pain. He states that around 8:30 in the morning on Tuesday, 01/08, he awakened from sleep feeling essentially well. He had a bowel movement that was slightly looser than normal, but as the morning progressed he developed right lower quadrant abdominal pain that worsened over the course of Tuesday and Tuesday. The pain continued to progress on Tuesday and ultimately, he presented to the emergency department around 10:30 p.m. The patient stated that the pain was sharp and stabbing in nature, mostly located in the right lower quadrant of the abdomen and he can feel it radiating down into his groin. He reports normal bowel movements on Tuesday without any blood. He denied any fevers, but did state that he has had some chills at home. In the emergency department, he rated his pain at 10/10. He reports that this is the first episode of this type of pain. He had a colonoscopy in the past and had multiple polypectomies and then approximately 1 year ago, he had a repeat colonoscopy with only 1 polypectomy. Previous abdominal surgery was open primary repair of an umbilical hernia. The patient denies any family history of colon cancer. He underwent CT of the abdomen and pelvis, which revealed colonic diverticulosis with wall thickening and fat stranding in the sigmoid colon consistent with acute diverticulitis; a tiny air locule in the inflamed pericolonic fat adjacent to the sigmoid colon is suspicious for a small contained perforation, but no abscess. White blood count was 11.2, CRP 133. He was started on intravenous Zosyn and kept n.p.o. PAST MEDICAL HISTORY: 1. Hypertension. 2. Hypothyroidism. 3. Obesity. 4. Type 2 diabetes. 5. Osteoarthritis. 6. Vertigo. PAST SURGICAL HISTORY: Open primary umbilical hernia repair, bilateral cataract extraction, and tonsillectomy. MEDICATIONS: 1. Meclizine 25 mg p.o. t.i.d. p.r.n. for dizziness. 2. Levothyroxine 200 mcg p.o. daily. 3. Metformin 500 mg p.o. b.i.d. 4. Amlodipine 5 mg p.o. daily. 5. Losartan 25 mg p.o. daily. 6. Hydrochlorothiazide 25 mg p.o. daily. 7. Atenolol 25 mg p.o. daily. 8. Ibuprofen 200 mg q.8 hours p.r.n. for pain. 9. Flonase 1 spray in each nostril daily. ALLERGIES: ZOCOR caused some type of unspecified reaction. FAMILY HISTORY: No known colon cancer (mother age 84 with lung cancer and also had a history of cervical cancer). Father age 92 with congestive heart failure. SOCIAL HISTORY: He is and his is at the bedside; he is retired from the government; he is a nonsmoker and denies the use of alcohol or other substances. REVIEW OF SYSTEMS: Constitutional: No fevers. He did have chills at home. No excessive fatigue. Endocrine: Type 2 diabetes; glucose on admission 142 and he is also on thyroid replacement for hypothyroidism. Respiratory: No dyspnea on exertion. No chronic cough. Cardiovascular: No anginal chest pain or palpitations. Gastrointestinal: As described in the history of present illness. Genitourinary: No dysuria. No air when the patient urinates. General : No previous anesthesia complications. No history of deep vein thrombosis or pulmonary embolism. No bleeding tendencies. Musculoskeletal: Normal strength and tone. Neurologic: No areas of focal weakness or numbness. No headache or blurred vision. PHYSICAL EXAMINATION: General Survey: The patient is a 68-year-old obese male , well developed, in no acute distress. Height 5 feet 11 inches, weight 258 pounds, body mass index 36. Blood pressure 103/54, pulse 62 and regular, respiratory rate 16, temperature 98.1, O2 saturation 94%. Skin: Warm, dry, intact. HEENT: Benign. Neck: Supple. No cervical lymphadenopathy. No thyromegaly. Back: No CVA tenderness. Lungs: Breath sounds bilaterally clear and equal. Heart: Regular rate and rhythm. No murmurs or rubs appreciated. Abdomen: Active bowel sounds. Abdomen is obese, soft, and nondistended; he is tender to palpation in the right lower quadrant with mild guarding and is also tender in the left lower quadrant and in the suprapubic region; no obvious masses or hernias. Genitalia and rectal exams deferred. Extremities are warm without edema or skin ulceration. Neurologic: Alert and oriented x3. IMPRESSION: Acute diverticulitis, first episode. CAT scan of the abdomen and pelvis revealed a tiny air locule adjacent to the sigmoid colon in the inflamed pericolonic fat suspicious for a small contained perforation, but no abscess. PLAN: He is admitted on the hospitalist service; he is currently receiving IV Zosyn and IV fluids and is n.p.o. Dr. Hernandez reviewed the CAT scan of the abdomen and pelvis and also examined the patient today and stated that we would continue with the current treatment, and we will follow with serial abdominal exams. All of the patient's questions were answered and the patient and his agreed with the plan. TIME SPENT: Sixty minutes with greater than 50% in [id number] history taking and performing the physical exam and the patient counseling. BRYCE SIFUENTES NP [id number]/[facility] #: [id number] FRANCESCA
[2019-01-11] MEDS: Ciprofloxacin 400MG IVPREMIX(* 400 MG/200 ML BAG IVPB SCH ×2 (03:14→14:40)
[2019-01-11] MEDS: NS 0.9% 1000 ML** 1,000 ML IV SCH (03:17)
[2019-01-11] MEDS: Levothyroxine TAB* 100 MCG TAB PO SCH (05:57)
[2019-01-11 06:06] LABS: ABS Eosinophils 0.3 10^3/ul (0-0.6); ABS Lymphocytes 1.4 10^3/ul (1.0-4.8); ABS Monocytes 0.9 10^3/ul (0-0.8); ABS Neutrophils 5.2 10^3/ul (1.5-7.7); Eosinophil % 3.7 %; Hematocrit 41 % (42-52); Hemoglobin 13.7 g/dL (14.0-18.0); Lymphocyte % 18.1 %; Mean Corpuscular HGB Conc 34 g/dL (31-36); Mean Corpuscular Hemoglobin 30 pg (27-31); Mean Corpuscular Volume 90 fL (80-94); Mean Platelet Volume 8.8 fL (7.4-10.4); Nucleated Red Blood Cells % 0.1; Platelet Count 209 10^3/uL (150-450); Red Blood Count 4.52 10^6 /uL (4.18-5.48); Red Cell Distribution Width 14 % (10-15); White Blood Count 7.9 10^3/uL (3.5-10.8)
[2019-01-11 06:30] LABS: BUN/Creatinine Ratio 12.9 (8-20); Calcium 9.4 mg/dL (8.6-10.3); EGFR African American 98.1 (>60); Potassium 3.6 mmol/L (3.5-5.0)
[2019-01-11] MEDS ORDERED: metFORMIN* 500 MG TAB PO SCH (08:00)
[2019-01-11] MEDS: metroNIDAZOLE IV 500 MG/100ML* 500 MG/100 ML BAG IVPB SCH ×3 (08:03→23:34)
[2019-01-11] MEDS: Atenolol TAB* 25 MG PO SCH (08:50)
[2019-01-11] MEDS: Losartan TAB* 25 MG PO SCH (08:51)
[2019-01-11] MEDS: amLODIPine TAB* 5 MG PO SCH (08:51)
[2019-01-11] MEDS: Enoxaparin(*) 40 MG/0.4 ML SYR SUBCUT SCH (08:53)
--- NOTE | 2019-01-11 09:26 | PN ---
Progress Note - Progress Note Date of Service: 01/11/19 SOAP: Subjective: The patient states he is feeling significantly better this morning. He is ambulating well and denies pain, nausea, and vomiting. Active medications are as follows: Acetaminophen (Tylenol Tab*) 650 mg PO Q4H PRN PRN Reason: mild pain Amlodipine Besylate (Norvasc Tab*) 5 mg PO DAILY [facility] Last Admin: 01/11/19 08:51 Dose: 5 mg Atenolol (Tenormin Tab*) 25 mg PO DAILY [facility] Last Admin: 01/11/19 08:50 Dose: 25 mg Enoxaparin Sodium (Lovenox(*)) 40 mg SUBCUT Q24H [facility] Last Admin: 01/11/19 08:53 Dose: 40 mg Sodium Chloride (Ns 0.9% 1000 Ml) 1,000 mls @ 100 mls/hr IV PER RATE [facility] Last Admin: 01/11/19 03:17 Dose: 100 mls/hr Ciprofloxacin/Dextrose (Cipro 400 Mg Ivpremix(*)) 400 mg in 200 mls @ 200 mls/ hr IVPB Q12H [facility]; Protocol Last Admin: 01/11/19 03:14 Dose: 200 mls/hr Metronidazole/Sodium Chloride (Flagyl 500 Mg Ivpb*) 500 mg in 100 mls @ 100 mls /hr IVPB Q8H [facility] Last Admin: 01/11/19 08:03 Dose: 100 mls/hr Levothyroxine Sodium (Synthroid Tab*) 200 mcg PO DAILY@0600 [facility] Last Admin: 01/11/19 05:57 Dose: 200 mcg Losartan Potassium (Cozaar Tab*) 25 mg PO DAILY [facility] Last Admin: 01/11/19 08:51 Dose: 25 mg Meclizine HCl (Antivert Tab*) 25 mg PO TID PRN PRN Reason: DIZZINESS Oxycodone HCl (Roxycodone Tab*) 5 mg PO Q4H PRN PRN Reason: moderate pain Objective: Vital Signs - 8 hr 01/11/19 01/11/19 03:14 07:38 Temperature 98.0 F 98.2 F Pulse Rate 66 67 Respiratory 17 14 Rate Blood Pressure 121/65 125/59 (mmHg) O2 Sat by Pulse 95 94 Oximetry Intake and Output Last 24 Hours 01/09/19 01/10/19 01/11/19 08/02/19 06:59 06:59 06:59 06:59 Intake Total 1320 2816 Output Total 300 3355 275 Balance 1020 -539 -275 Weight 258 lb Intake: IV Fluids 1120 1919 NS (0.9%) 1918 IVPB 577 ABX - CIPROFLOXACIN 420 ABX - FLAGYL 110 ABX - ZOSYN 47 Oral 200 320 Output: Urine 300 3355 275 Other: Estimated Void Large # Bowel Movements 0 GENERAL: A&O x3. Not in acute pain or distress, non-toxic. SKIN: warm and dry CARDIOVASCULAR: RRR, no MRG LUNGS: clear to auscultation bilaterally ABDOMEN: normoactive bowel sounds, non-distended, non-tender Labs: WBC 01/09/19 01/11/19 19:20 05:20 WBC 11.7 10^3/uL H 10^3/uL 7.9 10^3/uL 10^3/uL Assessment: 68 y.o. male with diverticulitis improving with medical management Plan: Diverticulitis: The patient's white count has returned to normal range this monring, he has been afebrile for >24 hours, and his pain has resolved. Continue ABX regimen with flagyl and cipro. The PT is currently NPO. Consider progression to clear liquid diet as tolerated. Continue regular ambulation and Lovenox for DVT/PE prophylaxis.
--- NOTE | 2019-01-11 13:26 | PN ---
Progress Note - Progress Note Date of Service: 01/11/19 SOAP: Subjective:fees well;minimal abdominal pain,no nausea or vomiting,tolerating clears,passing flatus,no stool;no dysuria [] Objective: Vital Signs Temp 98.4 F 01/11/19 11:23 Pulse 59 01/11/19 11:23 Resp 14 01/11/19 11:23 BP 112/55 01/11/19 11:23 Pulse Ox 95 01/11/19 11:23 Intake & Output 01/10/19 01/11/19 01/11/19 18:59 06:59 18:59 Intake Total 1512 1304 500 Output Total 1550 1805 575 Balance -38 -501 -75 Intake: IV Fluids 945 974 NS (0.9%) 945 974 IVPB 247 330 ABX - CIPROFLOXACIN 200 220 ABX - FLAGYL 110 ABX - ZOSYN 47 Oral 320 0 500 Output: Urine 1550 1805 575 Laboratory Last Values WBC 7.9 10^3/uL (3.5-10.8) 01/11/19 05:20 RBC 4.52 10^6 /uL (4.18-5.48) 01/11/19 05:20 Hgb 13.7 g/dL (14.0-18.0) L 01/11/19 05:20 Hct 41 % (42-52) L 01/11/19 05:20 MCV 90 fL (80-94) 01/11/19 05:20 MCH 30 pg (27-31) 01/11/19 05:20 MCHC 34 g/dL (31-36) 01/11/19 05:20 RDW 14 % (10-15) 01/11/19 05:20 Plt Count 209 10^3/uL (150-450) 01/11/19 05:20 MPV 8.8 fL (7.4-10.4) 01/11/19 05:20 Neut % (Auto) 65.8 % 01/11/19 05:20 Lymph % (Auto) 18.1 % 01/11/19 05:20 [place] % (Auto) 11.8 % 01/11/19 05:20 Eos % (Auto) 3.7 % 01/11/19 05:20 Baso % (Auto) 0.6 % 01/11/19 05:20 Absolute Neuts (auto) 5.2 10^3/ul (1.5-7.7) 01/11/19 05:20 Absolute Lymphs (auto) 1.4 10^3/ul (1.0-4.8) 01/11/19 05:20 Absolute Monos (auto) 0.9 10^3/ul (0-0.8) H 01/11/19 05:20 Absolute Eos (auto) 0.3 10^3/ul (0-0.6) 01/11/19 05:20 Absolute Basos (auto) 0.0 10^3/ul (0-0.2) 01/11/19 05:20 Absolute Nucleated RBC 0.0 10^3/ul 01/11/19 05:20 Nucleated RBC % 0.1 01/11/19 05:20 Sodium 140 mmol/L (135-145) 01/11/19 05:20 Potassium 3.6 mmol/L (3.5-5.0) 01/11/19 05:20 Chloride 106 mmol/L (101-111) 01/11/19 05:20 Carbon Dioxide 26 mmol/L (22-32) 01/11/19 05:20 Anion Gap 8 mmol/L (2-11) 01/11/19 05:20 BUN 12 mg/dL (6-24) 01/11/19 05:20 Creatinine 0.93 mg/dL (0.67-1.17) 01/11/19 05:20 Est GFR ( Amer) 98.1 (>60) 01/11/19 05:20 Est GFR (Non-Af Amer) 81.0 (>60) 01/11/19 05:20 BUN/Creatinine Ratio 12.9 (8-20) 01/11/19 05:20 Glucose 120 mg/dL (70-100) H 01/11/19 05:20 POC Glucose (mg/dL) 100 mg/dL (70-100) 01/10/19 17:14 Hemoglobin A1c 6.6 % (4.0-5.6) H 01/09/19 19:20 Lactic Acid 1.6 mmol/L (0.5-2.0) 01/09/19 15:00 Calcium 9.4 mg/dL (8.6-10.3) 01/11/19 05:20 Total Bilirubin 1.40 mg/dL (0.2-1.0) H 01/09/19 19:20 AST 17 U/L (13-39) 01/09/19 19:20 ALT 24 U/L (7-52) 01/09/19 19:20 Alkaline Phosphatase 51 U/L (34-104) 01/09/19 19:20 C-Reactive Protein 133.45 mg/L (<8.01) H 01/09/19 19:20 Total Protein 8.2 g/dL (6.4-8.9) 01/09/19 19:20 Albumin 4.7 g/dL (3.2-5.2) 01/09/19 19:20 Globulin 3.5 g/dL (2-4) 01/09/19 19:20 Albumin/Globulin Ratio 1.3 (1-3) 01/09/19 19:20 Lipase 28 U/L (11.0-82.0) 01/09/19 19:20 Urine Color Yellow 01/09/19 19:00 Urine Appearance Clear 01/09/19 19:00 Urine pH 7.0 (5-9) 01/09/19 19:00 Ur Specific [place] 1.011 (1.010-1.030) 01/09/19 19:00 Urine Protein Negative (Negative) 01/09/19 19:00 Urine Ketones Negative (Negative) 01/09/19 19:00 Urine Blood Negative (Negative) 01/09/19 19:00 Urine Nitrate Negative (Negative) 01/09/19 19:00 Urine Bilirubin Negative (Negative) 01/09/19 19:00 Urine Urobilinogen Negative (Negative) 01/09/19 19:00 Ur Leukocyte Esterase Negative (Negative) 01/09/19 19:00 Urine Glucose Negative (Negative) 01/09/19 19:00 abd:+bs,obese,soft,minimal tenderness RLQ,LLQ and suprapubic region with deep palpation;no guarding;no obvious masses or hernias [] Assessment:resolving acute diverticulitis with micro perf(1st episode);afebrile, normal WBC [] Plan:continue IV antibiotics today likely could go home tomorrow would recommend Augmentin 875mg po for 2 weeks and low residue diet can followup with his primary care provider plan discussed with patient and his []
--- NOTE | 2019-01-11 14:03 | PN ---
Subjective Date of Service: 01/11/19 Interval History: Patient is feeling much improved, minimal abdominal pain, no fever overnight, WBC is trending down. Objective Active Medications: Acetaminophen (Tylenol Tab*) 650 mg PO Q4H PRN PRN Reason: mild pain Amlodipine Besylate (Norvasc Tab*) 5 mg PO DAILY [facility] Last Admin: 01/11/19 08:51 Dose: 5 mg Atenolol (Tenormin Tab*) 25 mg PO DAILY [facility] Last Admin: 01/11/19 08:50 Dose: 25 mg Enoxaparin Sodium (Lovenox(*)) 40 mg SUBCUT Q24H SHON Last Admin: 01/11/19 08:53 Dose: 40 mg Ciprofloxacin/Dextrose (Cipro 400 Mg Ivpremix(*)) 400 mg in 200 mls @ 200 mls/ hr IVPB Q12H [facility]; Protocol Last Admin: 01/11/19 03:14 Dose: 200 mls/hr Metronidazole/Sodium Chloride (Flagyl 500 Mg Ivpb*) 500 mg in 100 mls @ 100 mls /hr IVPB Q8H SHON Last Admin: 01/11/19 08:03 Dose: 100 mls/hr Levothyroxine Sodium (Synthroid Tab*) 200 mcg PO DAILY@0600 SHON Last Admin: 01/11/19 05:57 Dose: 200 mcg Losartan Potassium (Cozaar Tab*) 25 mg PO DAILY [facility] Last Admin: 01/11/19 08:51 Dose: 25 mg Meclizine HCl (Antivert Tab*) 25 mg PO TID PRN PRN Reason: DIZZINESS Vital Signs - 8 hr 01/11/19 01/11/19 01/11/19 07:38 08:00 11:23 Temperature 98.2 F 98.4 F Pulse Rate 67 59 Respiratory 14 18 14 Rate Blood Pressure 125/59 112/55 (mmHg) O2 Sat by Pulse 94 95 Oximetry Oxygen Devices in Use Now: None Exam: Sitting in a chair comfortably Heart S1S2 normal, no murmur Lung clear Abdomen mild tenderness over RLQ, no rigidity, no rebound tenderness Calves supple Result Diagrams: 01/11/19 05:20 01/11/19 05:20 Additional Lab and Data: Lab Results 01/09/19 01/09/19 01/09/19 Range/Units 15:00 19:00 19:20 WBC 11.7 H (3.5-10.8) 10^3/uL RBC 4.99 (4.18-5.48) 10^6 /uL Hgb 15.0 (14.0-18.0) g/dL Hct 45 (42-52) % MCV 90 (80-94) fL MCH 30 (27-31) pg MCHC 33 (31-36) g/dL RDW 14 (10-15) % Plt Count 233 (150-450) 10^3/uL MPV 8.2 (7.4-10.4) fL Neut % (Auto) 68.9 % Lymph % (Auto) 17.1 % [place] % (Auto) 11.9 % Eos % (Auto) 1.6 % Baso % (Auto) 0.5 % Absolute Neuts (auto) 8.1 H (1.5-7.7) 10^3/ul Absolute Lymphs (auto) 2.0 (1.0-4.8) 10^3/ul Absolute Monos (auto) 1.4 H (0-0.8) 10^3/ul Absolute Eos (auto) 0.2 (0-0.6) 10^3/ul Absolute Basos (auto) 0.1 (0-0.2) 10^3/ul Absolute Nucleated RBC 0.0 10^3/ul Nucleated RBC % 0.0 Sodium (135-145) mmol/L Potassium (3.5-5.0) mmol/L Chloride (101-111) mmol/L Carbon Dioxide (22-32) mmol/L Anion Gap (2-11) mmol/L BUN (6-24) mg/dL Creatinine (0.67-1.17) mg/dL Est GFR ( Amer) (>60) Est GFR (Non-Af Amer) (>60) BUN/Creatinine Ratio (8-20) Glucose (70-100) mg/dL Lactic Acid 1.6 (0.5-2.0) mmol/L Calcium (8.6-10.3) mg/dL Total Bilirubin (0.2-1.0) mg/dL AST (13-39) U/L ALT (7-52) U/L Alkaline Phosphatase (34-104) U/L C-Reactive Protein (<8.01) mg/L Total Protein (6.4-8.9) g/dL Albumin (3.2-5.2) g/dL Globulin (2-4) g/dL Albumin/Globulin Ratio (1-3) Lipase (11.0-82.0) U/L Urine Color Yellow Urine Appearance Clear Urine pH 7.0 (5-9) Ur Specific [place] 1.011 (1.010-1.030) Urine Protein Negative (Negative) Urine Ketones Negative (Negative) Urine Blood Negative (Negative) Urine Nitrate Negative (Negative) Urine Bilirubin Negative (Negative) Urine Urobilinogen Negative (Negative) Ur Leukocyte Esterase Negative (Negative) Urine Glucose Negative (Negative) 01/09/19 Range/Units 19:20 WBC (3.5-10.8) 10^3/uL RBC (4.18-5.48) 10^6 /uL Hgb (14.0-18.0) g/dL Hct (42-52) % MCV (80-94) fL MCH (27-31) pg MCHC (31-36) g/dL RDW (10-15) % Plt Count (150-450) 10^3/uL MPV (7.4-10.4) fL Neut % (Auto) % Lymph % (Auto) % [place] % (Auto) % Eos % (Auto) % Baso % (Auto) % Absolute Neuts (auto) (1.5-7.7) 10^3/ul Absolute Lymphs (auto) (1.0-4.8) 10^3/ul Absolute Monos (auto) (0-0.8) 10^3/ul Absolute Eos (auto) (0-0.6) 10^3/ul Absolute Basos (auto) (0-0.2) 10^3/ul Absolute Nucleated RBC 10^3/ul Nucleated RBC % Sodium 136 (135-145) mmol/L Potassium 4.2 (3.5-5.0) mmol/L Chloride 98 L (101-111) mmol/L Carbon Dioxide 31 (22-32) mmol/L Anion Gap 7 (2-11) mmol/L BUN 20 (6-24) mg/dL Creatinine 1.08 (0.67-1.17) mg/dL Est GFR ( Amer) 82.5 (>60) Est GFR (Non-Af Amer) 68.2 (>60) BUN/Creatinine Ratio 18.5 (8-20) Glucose 142 H (70-100) mg/dL Lactic Acid (0.5-2.0) mmol/L Calcium 10.7 H (8.6-10.3) mg/dL Total Bilirubin 1.40 H (0.2-1.0) mg/dL AST 17 (13-39) U/L ALT 24 (7-52) U/L Alkaline Phosphatase 51 (34-104) U/L C-Reactive Protein 133.45 H (<8.01) mg/L Total Protein 8.2 (6.4-8.9) g/dL Albumin 4.7 (3.2-5.2) g/dL Globulin 3.5 (2-4) g/dL Albumin/Globulin Ratio 1.3 (1-3) Lipase 28 (11.0-82.0) U/L Urine Color Urine Appearance Urine pH (5-9) Ur Specific [place] (1.010-1.030) Urine Protein (Negative) Urine Ketones (Negative) Urine Blood (Negative) Urine Nitrate (Negative) Urine Bilirubin (Negative) Urine Urobilinogen (Negative) Ur Leukocyte Esterase (Negative) Urine Glucose (Negative) Assess/Plan/Problems-Billing Assessment: Mr Emanuel is a 68 y/o male with b/g HTN, T2DM, hypothyroidism, presented to ED with sudden onset of RLQ pain with a documented fever 100.2F, CT abdomen confirmed acute diverticulitis with microperforation. He improved significantly with medical treatment alone including clear fluid and IV antibiotics. He would be able to return home soon if he can tolerated diet . - Patient Problems (1) Diverticulitis Current Visit: Yes Status: Acute Code(s): K57.92 - DVTRCLI OF INTEST, PART UNSP, W/O PERF OR ABSCESS W/O BLEED SNOMED Code(s): 959902027 Comment: - Acute diverticulitis with microperforation - no history of diverticulitis before - IV cipro and flagyl for better GI coverage, current antibiotic d2 - change to clear fluid today, consider graduated to non residual soft diet end of today (2) Diabetes 1.5, managed as type 2 Current Visit: Yes Status: Acute Code(s): E13.9 - OTHER SPECIFIED DIABETES MELLITUS WITHOUT COMPLICATIONS SNOMED Code(s): 767906909 Comment: continue metformin (3) Hypertension Current Visit: Yes Status: Acute Code(s): I10 - ESSENTIAL (PRIMARY) HYPERTENSION SNOMED Code(s): 05188250 Status and Disposition: consider discharge if patient is able to tolerate diet Attestation Documenting Resident: Priya Anand Supervising Physician: Landy Flowers Attestation: This service has been performed in part by a resident under the direction of a teaching physician.I, Landy Flowers, performed the service, or was physically present during the critical, or sheridan portions of the service, furnished by the resident. I participated in the management of the patient.
--- NOTE | 2019-01-11 14:41 | PN ---
Hospitalist Progress Note Date of Service: 01/11/19 Attending Assessment and Plan I have reviewed the subjective and objective and resident note and agree with findings of which I supervised HD #3 on 01/11 68M PMH HTN, NIDDM, hypothyroid presenting with acute diverticulitis and c/b non symptomatic microperferation, improving on conservative tx. #Acute diverticulitis: c/b microperfration seen on CT -Descalate abx, no e/o high risk, Cipro/Flagyl Day 3/ _ on 01/11 -Advance diet per tolerated -Surgery to consult, recommending 48 hours of IV abx #NIDDM: home meds as he is toelrating diet #Hypothryoid: Home meds #HTN: Home meds #DVT: Lovenox #Code: Full #Dispo: Anticpate d/c int he next 24 hours if toelrating diet
[2019-01-12] MEDS: Ciprofloxacin 400MG IVPREMIX(* 400 MG/200 ML BAG IVPB SCH (01:46)
[2019-01-12] MEDS: Levothyroxine TAB* 100 MCG TAB PO SCH (05:40)
[2019-01-12 07:21] LABS: ABS Eosinophils 0.3 10^3/ul (0-0.6); ABS Lymphocytes 1.6 10^3/ul (1.0-4.8); ABS Monocytes 0.7 10^3/ul (0-0.8); ABS Neutrophils 3.7 10^3/ul (1.5-7.7); Eosinophil % 4.9 %; Hematocrit 41 % (42-52); Hemoglobin 13.9 g/dL (14.0-18.0); Lymphocyte % 24.4 %; Mean Corpuscular HGB Conc 34 g/dL (31-36); Mean Corpuscular Hemoglobin 31 pg (27-31); Mean Corpuscular Volume 90 fL (80-94); Mean Platelet Volume 8.3 fL (7.4-10.4); Platelet Count 233 10^3/uL (150-450); Red Blood Count 4.53 10^6 /uL (4.18-5.48); Red Cell Distribution Width 14 % (10-15); White Blood Count 6.4 10^3/uL (3.5-10.8)
--- NOTE | 2019-01-12 07:33 | PN ---
Hospitalist Progress Note Date of Service: 01/12/19 Attending Assessment and Plan I have reviewed the subjective and objective and resident note and agree with findings of which I supervised HD #4 on 01/12 68M PMH HTN, NIDDM, hypothyroid presenting with acute diverticulitis and c/b non symptomatic microperferation, improving on conservative tx. #Acute diverticulitis: c/b microperfration seen on CT -Oral Cipro/Flagyl Day 4/ _ on 01/12, d/c on 5 days abx #NIDDM: home meds as he is toelrating diet #Hypothryoid: Home meds #HTN: Home meds #DVT: Lovenox #Code: Full #Dispo: DC today
[2019-01-12] MEDS ORDERED: metFORMIN* 500 MG TAB PO SCH (08:00)
[2019-01-12] MEDS: metroNIDAZOLE IV 500 MG/100ML* 500 MG/100 ML BAG IVPB SCH (08:22)
[2019-01-12] MEDS: Atenolol TAB* 25 MG PO SCH (08:32)
[2019-01-12] MEDS: Losartan TAB* 25 MG PO SCH (08:32)
[2019-01-12] MEDS: Enoxaparin(*) 40 MG/0.4 ML SYR SUBCUT SCH (08:32)
[2019-01-12] MEDS: amLODIPine TAB* 5 MG PO SCH (08:33)
--- NOTE | 2019-01-12 08:45 | DS ---
CC: Edwin Voss MD * DISCHARGE SUMMARY: DATE OF ADMISSION: 01/10/19 DATE OF DISCHARGE: 01/12/19 PRIMARY CARE PROVIDER: Edwin Voss MD DISPOSITION AT THE TIME OF DISCHARGE: Stable to be discharged to home. PRIMARY DIAGNOSIS: Acute diverticulitis complicated by microperforation. SECONDARY DIAGNOSES: 1. Hypertension. 2. Type 2 diabetes. 3. Hypothyroidism. 4. History of osteoarthritis. 5. Hypertension. MEDICATIONS AT THE TIME OF DISCHARGE: Include: 1. Fluticasone 50 mcg per nares daily. 2. Hydrochlorothiazide 25 mg p.o. daily. 3. Ibuprofen 200 mg p.o. q.8 hours p.r.n. for pain. 4. Metformin 500 mg p.o. b.i.d. 5. Amlodipine 5 mg p.o. daily. 6. Atenolol 25 mg p.o. daily. 7. Levothyroxine 200 mcg p.o. daily. 8. Losartan 25 mg p.o. daily. 9. Meclizine 25 mg p.o. t.i.d. 10. Ciprofloxacin 500 mg p.o. b.i.d. for additional 5 days after discharge to end on 01/17/19. 11. Flagyl 500 mg b.i.d. for additional 5 days after discharge to end on . Medications changed during this admission are addition of Cipro and Flagyl for acute infection. HOSPITAL COURSE BY PROBLEM: Is as follows: A 68-year-old male with the above past medical history who presented to the emergency room on 01/09/19 with a complaint of right lower quadrant abdominal pain for 2 days that awakened him from sleep. He had had some loose bowel movements and the pain eventually progressed to the point where he sought care at the emergency room. He also had low-grade fevers at home. In the ER, a CT of the abdomen and pelvis was done which showed acute diverticulitis on the right side, though there was tiny air bubbles in the inflamed pericolonic fat adjacent to the sigmoid colon which was suspicious for contained perforation, although no abscess was noted. He was admitted to the hospital and hospital course by problems is as follows: 1. Acute diverticulosis, complicated by microperforation. Surgery was consulted who felt that the patient was appropriate for conservative management and to be on IV antibiotics for 48 hours, n.p.o., and then slowly advance diet. They did serial abdominal exams which did not change. He was kept n.p.o. for the first 24 hours and then advanced to clear liquid, eventually a residue diet and tolerated all very well. He was able to transitioned off IV antibiotics on hospital day 3 and was tolerating oral antibiotics with regular diet, was able to be discharged to home. 2. Ahm-sltjxnj-aqcyzrwxl diabetes. Home medications were continued once he resumed diet. 3. Hypothyroidism. Home medications were continued. 4. Hypertension. Home medications were continued. 5. DVT prophylaxis. The patient was kept on Lovenox. 6. Disposition: At the time of discharge, the patient was stable to be discharged to home. LABS AND STUDIES DONE DURING THIS HOSPITALIZATION: Labs on 01/12/19 show improved leukocytosis at 6.4, hemoglobin 13.9, hematocrit 41. BMP was fully unremarkable during this stay. CT abdomen and pelvis done on 01/09/19 showed colonic diverticulosis with wall thickening and fat stranding in the sigmoid colon consistent with acute diverticulitis and a tiny air locule in the inflamed pericolonic fat adjacent to the sigmoid colon suspicious for a small contained microperforation without abscess. CONSULTANTS DURING THIS STAY: Included Surgery who also signed off on this patient's discharge. ITEMS TO FOLLOW UP STATUS POST DISCHARGE: Acute diverticulitis. In short, the patient completes course and is able to tolerate diet. If there are any local complications of acute diverticulitis such as pain, tenderness, or worsening, he should be referred for CT abdomen and pelvis to ensure that there is no abscess formation at his known likely microperforation. On the day of discharge, the patient is voiding freely, ambulating, tolerating diet. Stable to be discharged home with home antibiotics. Plan of care was discussed with the patient and family who agreed understanding risks and understanding when to come back to the hospital. TIME SPENT: Thirty minutes was spent in the planning this discharge with over half of that spent directly at the bedside of the patient providing direct patient care. If there are any questions about the care of this patient during this hospitalization, please do not hesitate to reach out and contact the hospitalist team directly. [id number]/CPS #: [id number] FRANCESCA
--- NOTE | 2019-01-12 10:16 | PN ---
Progress Note - Progress Note Date of Service: 01/12/19 SOAP: Subjective: The patient states he is feeling very well this morning. He denies pain, nausea , and vomiting. He is voiding and stooling normally and is able to ambulate well. He is tolerating a normal diet and was sitting up eating breakfast when I saw him. He expressed the desire to go home today. Current medications are as follows: Acetaminophen (Tylenol Tab*) 650 mg PO Q4H PRN PRN Reason: mild pain Amlodipine Besylate (Norvasc Tab*) 5 mg PO DAILY [facility] Last Admin: 01/12/19 08:33 Dose: 5 mg Atenolol (Tenormin Tab*) 25 mg PO DAILY [facility] Last Admin: 01/12/19 08:32 Dose: 25 mg Enoxaparin Sodium (Lovenox(*)) 40 mg SUBCUT Q24H SHON Last Admin: 01/12/19 08:32 Dose: 40 mg Ciprofloxacin/Dextrose (Cipro 400 Mg Ivpremix(*)) 400 mg in 200 mls @ 200 mls/ hr IVPB Q12H [facility]; Protocol Last Admin: 01/12/19 01:46 Dose: 200 mls/hr Metronidazole/Sodium Chloride (Flagyl 500 Mg Ivpb*) 500 mg in 100 mls @ 100 mls /hr IVPB Q8H [facility]ON Last Admin: 01/12/19 08:22 Dose: 100 mls/hr Levothyroxine Sodium (Synthroid Tab*) 200 mcg PO DAILY@0600 [facility] Last Admin: 01/12/19 05:40 Dose: 200 mcg Losartan Potassium (Cozaar Tab*) 25 mg PO DAILY [facility] Last Admin: 01/12/19 08:32 Dose: 25 mg Meclizine HCl (Antivert Tab*) 25 mg PO TID PRN PRN Reason: DIZZINESS Metformin HCl (Glucophage*) 500 mg PO 0800,1700 [facility] Last Admin: 01/12/19 08:32 Dose: 500 mg Objective: Vital Signs - 8 hr 01/12/19 01/12/19 01/12/19 03:43 07:51 08:00 Temperature 98.0 F 97.6 F Pulse Rate 55 52 Respiratory 17 16 18 Rate Blood Pressure 126/72 125/59 (mmHg) O2 Sat by Pulse 98 98 Oximetry Intake and Output Last 24 Hours 01/10/19 01/11/19 01/12/19 01/13/19 06:59 06:59 06:59 06:59 Intake Total 1320 2816 2961 Output Total 300 3355 2950 250 Balance 1020 -539 11 -250 Weight 258 lb Intake: IV Fluids 1120 1919 1295 ABX - CIPROFLOXACIN 205 ABX - FLAGYL 110 NS (0.9%) 1919 980 IVPB 577 486 ABX - CIPROFLOXACIN 420 271 ABX - FLAGYL 110 215 ABX - ZOSYN 47 Oral 277 112 5831 Output: Urine 300 3355 2950 250 Other: Estimated Void Large # Bowel Movements 0 0 WBC 01/09/19 01/11/19 01/12/19 19:20 05:20 07:08 WBC 11.7 10^3/uL H 10^3/uL 7.9 10^3/uL 10^3/uL 6.4 10^3/uL 10^3/uL (3.5-10.8) (3.5-10.8) (3.5-10.8) Physical exam: Assessment: 68 year old man with diverticulitis with microperforations managed medically. Plan: Continue ABX treatment. Consider shifting to oral ABX and discharge to home as the patient has adequate pain control, is tolerating a normal diet, and continues to run normal temps and white counts. <Louann Masters - Last Filed: 01/12/19 10:11> - Progress Note SOAP: Subjective: Discussed w/ PA student; as this is his first episode and the complication (microperf) was minor and he has improved quickly w/ abx tx, he does not require any surgical followup. Also discussed w/ Dr. Hernandez. [] Objective: [] Assessment: [] Plan: [] <Nahun Ferreira - Last Filed: 01/12/19 16:13>
[2019-01-12 11:08] VITALS: BP 113/63
--- NOTE | 2019-01-12 11:42 | PN ---
Subjective Date of Service: 01/12/19 Interval History: Patient was doing well, felt mild RLQ pain. Tolerated clear fluid diet well yesterday, he hasn't passed motion yet. He is very keen for home. Objective Active Medications: Acetaminophen (Tylenol Tab*) 650 mg PO Q4H PRN PRN Reason: mild pain Amlodipine Besylate (Norvasc Tab*) 5 mg PO DAILY [facility] Last Admin: 01/12/19 08:33 Dose: 5 mg Atenolol (Tenormin Tab*) 25 mg PO DAILY [facility] Last Admin: 01/12/19 08:32 Dose: 25 mg Ciprofloxacin (Cipro Tab*) 500 mg PO Q12HR [facility]; Protocol Enoxaparin Sodium (Lovenox(*)) 40 mg SUBCUT Q24H [facility] Last Admin: 01/12/19 08:32 Dose: 40 mg Metronidazole/Sodium Chloride (Flagyl 500 Mg Ivpb*) 500 mg in 100 mls @ 100 mls /hr IVPB Q8H [facility] Last Admin: 01/12/19 08:22 Dose: 100 mls/hr Levothyroxine Sodium (Synthroid Tab*) 200 mcg PO DAILY@0600 [facility] Last Admin: 01/12/19 05:40 Dose: 200 mcg Losartan Potassium (Cozaar Tab*) 25 mg PO DAILY [facility] Last Admin: 01/12/19 08:32 Dose: 25 mg Meclizine HCl (Antivert Tab*) 25 mg PO TID PRN PRN Reason: DIZZINESS Metformin HCl (Glucophage*) 500 mg PO 0800,1700 [facility] Last Admin: 01/12/19 08:32 Dose: 500 mg Vital Signs - 8 hr 01/12/19 01/12/19 01/12/19 03:43 07:51 08:00 Temperature 98.0 F 97.6 F Pulse Rate 55 52 Respiratory 17 16 18 Rate Blood Pressure 126/72 125/59 (mmHg) O2 Sat by Pulse 98 98 Oximetry 01/12/19 11:07 Temperature 98.1 F Pulse Rate 56 Respiratory 16 Rate Blood Pressure 113/63 (mmHg) O2 Sat by Pulse 96 Oximetry Oxygen Devices in Use Now: None Exam: Well, sitting on chair comfortably. Heart: normal S1 S2 Lung: clear Abdomen: right RLQ tendernss, no rebound tenderness or regidity. calves supple Result Diagrams: 01/12/19 07:08 08/01/19 05:20 Additional Lab and Data: Lab Results 01/09/19 01/09/19 01/09/19 Range/Units 15:00 19:00 19:20 WBC 11.7 H (3.5-10.8) 10^3/uL RBC 4.99 (4.18-5.48) 10^6 /uL Hgb 15.0 (14.0-18.0) g/dL Hct 45 (42-52) % MCV 90 (80-94) fL MCH 30 (27-31) pg MCHC 33 (31-36) g/dL RDW 14 (10-15) % Plt Count 233 (150-450) 10^3/uL MPV 8.2 (7.4-10.4) fL Neut % (Auto) 68.9 % Lymph % (Auto) 17.1 % Brooke % (Auto) 11.9 % Eos % (Auto) 1.6 % Baso % (Auto) 0.5 % Absolute Neuts (auto) 8.1 H (1.5-7.7) 10^3/ul Absolute Lymphs (auto) 2.0 (1.0-4.8) 10^3/ul Absolute Monos (auto) 1.4 H (0-0.8) 10^3/ul Absolute Eos (auto) 0.2 (0-0.6) 10^3/ul Absolute Basos (auto) 0.1 (0-0.2) 10^3/ul Absolute Nucleated RBC 0.0 10^3/ul Nucleated RBC % 0.0 Sodium (135-145) mmol/L Potassium (3.5-5.0) mmol/L Chloride (101-111) mmol/L Carbon Dioxide (22-32) mmol/L Anion Gap (2-11) mmol/L BUN (6-24) mg/dL Creatinine (0.67-1.17) mg/dL Est GFR ( Amer) (>60) Est GFR (Non-Af Amer) (>60) BUN/Creatinine Ratio (8-20) Glucose (70-100) mg/dL Lactic Acid 1.6 (0.5-2.0) mmol/L Calcium (8.6-10.3) mg/dL Total Bilirubin (0.2-1.0) mg/dL AST (13-39) U/L ALT (7-52) U/L Alkaline Phosphatase (34-104) U/L C-Reactive Protein (<8.01) mg/L Total Protein (6.4-8.9) g/dL Albumin (3.2-5.2) g/dL Globulin (2-4) g/dL Albumin/Globulin Ratio (1-3) Lipase (11.0-82.0) U/L Urine Color Yellow Urine Appearance Clear Urine pH 7.0 (5-9) Ur Specific [place] 1.011 (1.010-1.030) Urine Protein Negative (Negative) Urine Ketones Negative (Negative) Urine Blood Negative (Negative) Urine Nitrate Negative (Negative) Urine Bilirubin Negative (Negative) Urine Urobilinogen Negative (Negative) Ur Leukocyte Esterase Negative (Negative) Urine Glucose Negative (Negative) 01/09/19 Range/Units 19:20 WBC (3.5-10.8) 10^3/uL RBC (4.18-5.48) 10^6 /uL Hgb (14.0-18.0) g/dL Hct (42-52) % MCV (80-94) fL MCH (27-31) pg MCHC (31-36) g/dL RDW (10-15) % Plt Count (150-450) 10^3/uL MPV (7.4-10.4) fL Neut % (Auto) % Lymph % (Auto) % Brooke % (Auto) % Eos % (Auto) % Baso % (Auto) % Absolute Neuts (auto) (1.5-7.7) 10^3/ul Absolute Lymphs (auto) (1.0-4.8) 10^3/ul Absolute Monos (auto) (0-0.8) 10^3/ul Absolute Eos (auto) (0-0.6) 10^3/ul Absolute Basos (auto) (0-0.2) 10^3/ul Absolute Nucleated RBC 10^3/ul Nucleated RBC % Sodium 136 (135-145) mmol/L Potassium 4.2 (3.5-5.0) mmol/L Chloride 98 L (101-111) mmol/L Carbon Dioxide 31 (22-32) mmol/L Anion Gap 7 (2-11) mmol/L BUN 20 (6-24) mg/dL Creatinine 1.08 (0.67-1.17) mg/dL Est GFR ( Amer) 82.5 (>60) Est GFR (Non-Af Amer) 68.2 (>60) BUN/Creatinine Ratio 18.5 (8-20) Glucose 142 H (70-100) mg/dL Lactic Acid (0.5-2.0) mmol/L Calcium 10.7 H (8.6-10.3) mg/dL Total Bilirubin 1.40 H (0.2-1.0) mg/dL AST 17 (13-39) U/L ALT 24 (7-52) U/L Alkaline Phosphatase 51 (34-104) U/L C-Reactive Protein 133.45 H (<8.01) mg/L Total Protein 8.2 (6.4-8.9) g/dL Albumin 4.7 (3.2-5.2) g/dL Globulin 3.5 (2-4) g/dL Albumin/Globulin Ratio 1.3 (1-3) Lipase 28 (11.0-82.0) U/L Urine Color Urine Appearance Urine pH (5-9) Ur Specific [place] (1.010-1.030) Urine Protein (Negative) Urine Ketones (Negative) Urine Blood (Negative) Urine Nitrate (Negative) Urine Bilirubin (Negative) Urine Urobilinogen (Negative) Ur Leukocyte Esterase (Negative) Urine Glucose (Negative) Assess/Plan/Problems-Billing Assessment: Mr Emanuel is a 68 y/o male with b/g HTN, T2DM, hypothyroidism, presented to ED with sudden onset of RLQ pain with a documented fever 100.2F, CT abdomen confirmed acute diverticulitis with microperforation. He improved significantly with medical treatment alone including clear fluid and IV antibiotics. He will be dicharged today. - Patient Problems (1) Diverticulitis Current Visit: Yes Status: Acute Code(s): K57.92 - DVTRCLI OF INTEST, PART UNSP, W/O PERF OR ABSCESS W/O BLEED SNOMED Code(s): 473001343 Comment: - Acute diverticulitis with microperforation - no history of diverticulitis before - continue cipro and flagyl for total 7 days - soft diet for now (2) Diabetes 1.5, managed as type 2 Current Visit: Yes Status: Acute Code(s): E13.9 - OTHER SPECIFIED DIABETES MELLITUS WITHOUT COMPLICATIONS SNOMED Code(s): 559380723 Comment: continue metformin (3) Hypertension Current Visit: Yes Status: Acute Code(s): I10 - ESSENTIAL (PRIMARY) HYPERTENSION SNOMED Code(s): 28721273 Status and Disposition: discharge home today Attestation Documenting Resident: Priya Anand Supervising Physician: Landy Flowers Attestation: This service has been performed in part by a resident under the direction of a teaching physician.I, Landy Flowers, performed the service, or was physically present during the critical, or sheridan portions of the service, furnished by the resident. I participated in the management of the patient.
[2019-01-12] MEDS ORDERED: Ciprofloxacin TAB* 500 MG PO SCH (21:00)
== END 2019-01-12 12:15 | disposition home or self-care (01) | DRG 392 ==
LOC: ED 18:40 → SSU 01-10 02:08
PROVIDERS: ADMIT Hospitalist; ATTEND Internal Medicine
DX: K57.20 Diverticulitis of large intestine with perforation and abscess without bleeding (principal); I10 Essential (primary) hypertension; E11.9 Type 2 diabetes mellitus without complications; E03.9 Hypothyroidism, unspecified; E66.9 Obesity, unspecified; R30.0 Dysuria; M19.90 Unspecified osteoarthritis, unspecified site; Z79.84 Long term (current) use of oral hypoglycemic drugs; Z79.899 Other long term (current) drug therapy; Z88.8 Allergy status to other drugs, medicaments and biological substances; Z98.42 Cataract extraction status, left eye; Z98.41 Cataract extraction status, right eye; Z82.49 Family history of ischemic heart disease and other diseases of the circulatory system; Z80.1 Family history of malignant neoplasm of trachea, bronchus and lung; Z80.49 Family history of malignant neoplasm of other genital organs; Z68.36 Body mass index [BMI] 36.0-36.9, adult; Z83.3 Family history of diabetes mellitus; Z87.891 Personal history of nicotine dependence
CPT/HCPCS: 36415; 74177; 80048; 80053; 81003; 83036; 83605; 83690; 85025; 86140; 99284; A9270-GY; J0744; J1650; J2270; J2405; J2543; J3490; Q9967